=== PATIENT | female | born 1980 | race Caucasian/White ===

== ENCOUNTER 2017-01-31 08:55 | Inpatient (IN) | payer OTHER ==
[2017-01-31] VITALS (40 sets, daily range): BP systolic 58–134; BP diastolic 38–83; PULSE 84–120; RESP 12–33; TEMP 97.8–98.9; O2SAT 96–100
[~2017-01-31] VITALS: Ht 167.6 cm; Wt 91.0 kg
[~2017-01-31 08:55] MED LIST: ALPR.25 PO; LEVO150T7 PO; LORA-475 PO; PRENCAP10 PO
[2017-01-31] MEDS ORDERED: SODIUM CHLOR 0.9% 1000 ML INJ 1,000 ML IV SCH (09:21)
[2017-01-31] MEDS ORDERED: ONDANSETRON HCL 4 MG/2 ML VIAL IVP ONE (09:30)
[2017-01-31] MEDS ORDERED: PANTOPRAZOLE INJ 80 MG in SODIUM CHLORIDE 0.9% INJ 35 ML IV ONE (09:30)
--- NOTE | 2017-01-31 09:34 | PD ---
HPI Chief Complaint: GI Complaint Time Seen by Provider: 09:13 Travel History International Travel<30 days: No Contact w/Intl Traveler<30days: No Traveled to known affect area: No History of Present Illness HPI The patient is a 36-year-old female who presents to the emergency department for hematemesis. The patient has a history of prior alcohol abuse, underwent alcohol withdrawal seizures earlier this year and then went to rehabilitation. The patient states she was clean for several months, however, when on vacation and subsequently started using alcohol once again. The patient has been drinking a pint of vodka per day for the last 3 weeks. The patient states she developed dark stools 2 days ago and then earlier this morning at 4:30 AM developed nausea with subsequent vomiting. The patient states she's had multiple episodes of vomiting right red to dark red blood with a few clots. The patient denies any known history of gastritis, peptic ulcer disease, or esophageal varices. She denies taking any blood thinners. She does complain of mild nausea but denies any acute abdominal pain. She denies any known history of coagulopathy. The patient is never undergone endoscopy in the past, her current primary physician is Dr. Cayden Rowell. [facility] Past Medical History Anxiety: Yes (xanax prn) Depression: Yes (POST DEPRESSION) Cancer: No Cardiovascular Problems: No Diabetes: No Diminished Hearing: No Endocrine: Yes Gastrointestinal Disorders: Yes (GERD) GERD: Yes Genitourinary: No Hepatitis: No Hiatal Hernia: No Hypertension: Yes Immune Disorder: No Musculoskeletal: No Neurologic: No Psychiatric: Yes (ANXIETY, CLAUSTRAPHOBIA) Reproductive: No Respiratory: No Immunizations Current: Yes Thyroid Disease: Yes Tetanus Vaccination: > 5 Years Influenza Vaccination: No ?: Not LMP: 12/15/16 : 2 Para: 2 Past Surgical History AICD: No Cholecystectomy: Yes Joint Replacement: No Pacemaker: No Other Surgery: No (VARICOSE VEINS REMOVAL SURGERY) Social History Alcohol Use: Yes (1L/day) Tobacco Use: No Substance Use: No Allergies-Medications (Allergen,Severity, Reaction): Coded Allergies: No Known Allergies (Unverified , 01/31/17) Reported Meds & Prescriptions Reported Meds & Active Scripts Active Ativan (Lorazepam) 2 Mg Tab 2 Mg PO Q8HR PRN Reported Levothyroxine 150 mcg (Levothyroxine Sodium) 150 Mcg Tab 150 Mcg PO DAILY Multi +Dha (Ferrous Fumarate/Vit C/Folic Acid) + Cap 1 Cap PO DAILY Xanax 0.25 Mg (Alprazolam) 0.25 Mg Tab 0.25 Mg PO TID PRN Review of Systems Except as stated in HPI: all other systems reviewed are Neg General / Constitutional: No: Fever HENT: No: Lightheadedness Cardiovascular: No: Chest Pain or Discomfort Respiratory: No: Shortness of Breath Gastrointestinal: Positive: Nausea, Vomiting, Hematemesis, Changes in Bowel Habits (dark colored stools over the last several days), No: Abdominal Pain Musculoskeletal: Positive: Weakness Neurologic: No: Dizziness Psychiatric: Positive: Anxiety, Depression, Substance Abuse (alcohol abuse) Physical Exam Narrative GENERAL: Awake, alert, pleasant 36 year-old female who appears her stated age and is in no acute respiratory distress. SKIN: Focused skin assessment warm/dry. HEAD: Atraumatic. Normocephalic. EYES: Pupils equal and round. No scleral icterus. No injection or drainage. ENT: No nasal bleeding or discharge. Mucous membranes pink and moist. NECK: Trachea midline. No JVD. CARDIOVASCULAR: Regular, tachycardic with a heart rate of 105. RESPIRATORY: No accessory muscle use. Clear to auscultation. Breath sounds equal bilaterally. GASTROINTESTINAL: Abdomen soft, non-tender, nondistended. No epigastric tenderness. MUSCULOSKELETAL: No obvious deformities. No clubbing. No cyanosis. No edema. Mildly tremulous. NEUROLOGICAL: Awake and alert. No obvious cranial nerve deficits. Motor grossly within normal limits. Normal speech. PSYCHIATRIC: Appropriate mood and affect; insight and judgment normal. Data Data Last Documented VS Vital Signs Date Time Temp Pulse Resp B/P Pulse Ox O2 Delivery O2 Flow Rate FiO2 01/31/17 10:31 85 16 103/73 100 Room Air 01/31/17 09:01 98.0 Orders Complete Blood Count With Diff (01/31/17 09:21) Comprehensive Metabolic Panel (01/31/17 09:21) Lipase (01/31/17 09:21) Prothrombin Time / Inr (Pt) (01/31/17 09:21) Act Partial Throm Time (Ptt) (01/31/17 09:21) Alcohol (Ethanol) (01/31/17 09:21) Urinalysis - C+S If Indicated (01/31/17 09:21) Type And Screen (01/31/17 09:21) Ecg Monitoring (01/31/17 09:21) Iv Access Insert/Monitor (01/31/17 09:21) Orthostatic Vital Signs (01/31/17 09:21) Oximetry (01/31/17 09:21) Ondansetron Inj (Zofran Inj) (01/31/17 09:30) Sodium Chlor 0.9% 1000 Ml Inj (Ns 1000 M (01/31/17 09:21) Sodium Chloride 0.9% Flush (Ns Flush) (01/31/17 09:30) Octreotide Inj (Sandostatin Inj) (01/31/17 09:30) Pantoprazole Inj (Protonix Inj) (01/31/17 09:30) Pantoprazole Inj (Protonix Inj) (01/31/17 09:30) Electrocardiogram (01/31/17 ) Sodium Chlor 0.9% 1000 Ml Inj (Ns 1000 M (01/31/17 10:00) NPO (01/31/17 10:54) Fresh Frozen Plasma (Ffp) (01/31/17 10:54) Blood Product Administration .UPON TRANSFUSION (01/31/17 10:54) Sodium Chlor 0.9% 250 Ml Inj (Ns 250 Ml (01/31/17 11:00) Diphenhydramine Inj (Benadryl Inj) (01/31/17 11:00) Acetaminophen (Tylenol) (01/31/17 11:00) Consent (01/31/17 10:55) Consult Gastroenterology (01/31/17 ) Admit Order (Ed Use Only) (01/31/17 11:31) Labs Laboratory Tests Test 01/31/17 09:30 White Blood Count 8.0 TH/MM3 Red Blood Count 3.60 MIL/MM3 Hemoglobin 11.8 GM/DL Hematocrit 33.7 % Mean Corpuscular Volume 93.6 FL Mean Corpuscular Hemoglobin 32.7 PG Mean Corpuscular Hemoglobin 34.9 % Concent Red Cell Distribution Width 16.6 % Platelet Count 82 TH/MM3 Mean Platelet Volume 9.8 FL Neutrophils (%) (Auto) 82.5 % Lymphocytes (%) (Auto) 9.5 % Monocytes (%) (Auto) 7.0 % Eosinophils (%) (Auto) 0.3 % Basophils (%) (Auto) 0.7 % Neutrophils # (Auto) 6.5 TH/MM3 Lymphocytes # (Auto) 0.8 TH/MM3 Monocytes # (Auto) 0.6 TH/MM3 Eosinophils # (Auto) 0.0 TH/MM3 Basophils # (Auto) 0.1 TH/MM3 CBC Comment AUTO DIFF Differential Comment AUTO DIFF CONFIRMED Platelet Estimate LOW Platelet Morphology Comment NORMAL Prothrombin Time 21.9 SEC Prothromb Time International 1.9 RATIO Ratio Activated Partial 27.8 SEC Thromboplast Time Sodium Level 141 MEQ/L Potassium Level 3.5 MEQ/L Chloride Level 101 MEQ/L Carbon Dioxide Level 25.1 MEQ/L Anion Gap 15 MEQ/L Blood Urea Nitrogen 13 MG/DL Creatinine 0.55 MG/DL Estimat Glomerular Filtration 124 ML/MIN Rate Random Glucose 118 MG/DL Calcium Level 9.1 MG/DL Total Bilirubin 5.7 MG/DL Aspartate Amino Transf 307 U/L (AST/SGOT) Alanine Aminotransferase 104 U/L (ALT/SGPT) Alkaline Phosphatase 151 U/L Total Protein 7.8 GM/DL Albumin 3.1 GM/DL Lipase 234 U/L Ethyl Alcohol Level 115 MG/DL MDM Medical Decision Making Medical Screen Exam Complete: Yes Emergency Medical Condition: Yes Medical Record Reviewed: Yes Interpretation(s) EKG reveals normal sinus rhythm with a rate 87. Inverted T-wave in lead 3. Laboratory Tests Test 01/31/17 09:30 White Blood Count 8.0 TH/MM3 Red Blood Count 3.60 MIL/MM3 Hemoglobin 11.8 GM/DL Hematocrit 33.7 % Mean Corpuscular Volume 93.6 FL Mean Corpuscular Hemoglobin 32.7 PG Mean Corpuscular Hemoglobin 34.9 % Concent Red Cell Distribution Width 16.6 % Platelet Count 82 TH/MM3 Mean Platelet Volume 9.8 FL Neutrophils (%) (Auto) 82.5 % Lymphocytes (%) (Auto) 9.5 % Monocytes (%) (Auto) 7.0 % Eosinophils (%) (Auto) 0.3 % Basophils (%) (Auto) 0.7 % Neutrophils # (Auto) 6.5 TH/MM3 Lymphocytes # (Auto) 0.8 TH/MM3 Monocytes # (Auto) 0.6 TH/MM3 Eosinophils # (Auto) 0.0 TH/MM3 Basophils # (Auto) 0.1 TH/MM3 CBC Comment AUTO DIFF Differential Comment AUTO DIFF CONFIRMED Platelet Estimate LOW Platelet Morphology Comment NORMAL Prothrombin Time 21.9 SEC Prothromb Time International 1.9 RATIO Ratio Activated Partial 27.8 SEC Thromboplast Time Sodium Level 141 MEQ/L Potassium Level 3.5 MEQ/L Chloride Level 101 MEQ/L Carbon Dioxide Level 25.1 MEQ/L Anion Gap 15 MEQ/L Blood Urea Nitrogen 13 MG/DL Creatinine 0.55 MG/DL Estimat Glomerular Filtration 124 ML/MIN Rate Random Glucose 118 MG/DL Calcium Level 9.1 MG/DL Total Bilirubin 5.7 MG/DL Aspartate Amino Transf 307 U/L (AST/SGOT) Alanine Aminotransferase 104 U/L (ALT/SGPT) Alkaline Phosphatase 151 U/L Total Protein 7.8 GM/DL Albumin 3.1 GM/DL Lipase 234 U/L Ethyl Alcohol Level 115 MG/DL Differential Diagnosis Differential diagnosis includes esophageal varices, gastritis, peptic ulcer disease, upper GI bleed, alcohol withdrawal, dehydration, coagulopathy. Narrative Course IV was established, labs are drawn and sent, and the patient was placed on cardiac telemetry monitoring and continuous pulse oximetry monitoring. EKG was ordered and interpreted. The patient had approximate 600-700 cc of bright to dark colored blood with a few visible clots but then an emesis bag. Therefore, the patient was administered Protonix bolus and then a Protonix drip and octreotide. IV fluids were started. The on-call forest pathologist was paged. Orthostatic vital signs were obtained, blood pressure fell to 58/38 sitting upright, patient was symptomatic. Therefore, the patient was administered a 1 L normal saline bolus. The patient's INR is elevated at 1.9, platelets are low at 82, albumin 3.1, AST is greater than ALT at almost a 3-1 ratio, most likely indicative of liver disease from alcohol intoxication. Alcohol level is elevated at 115. The patient will need admission, repeat CBC, and GI consultation for endoscopy. I discussed the patient with Dr. Carranza who agrees with admission, however, we will await gastroenterology input in regards to whether the patient can stay at [place] or needs to be transferred to [facility]. I discussed the patient with Dr. Murillo at 10:54 AM who agrees with nothing by mouth, 2 units of FFP secondary to INR 1.9 with no anticoagulants, and she will call the GI lab to see if the patient can undergo endoscopy with possible banded at [place] or will have to be transferred to [facility]. I discussed the patient Dr. Murillo, she states the patient will undergo endoscopy at [facility], the patient will be admitted to the stepdown unit in the ICU. Critical Care Narrative Aggregate critical care time was 40 minutes. Time to perform other separately billable procedures was not included in the critical care time. My time did not include minutes spent treating any other patients simultaneously or on activities that did not directly contribute to the patient's treatment. The services I provided to this patient were to treat and/or prevent clinically significant deterioration that could result in: Hemorrhagic shock, dehydration, symptomatic anemia, alcohol withdrawal, arrhythmia, electrolyte abnormality, . I provided critical care services requiring my management, as noted below: Chart data review, documentation time, medication orders and management, vital sign assessments/reviewing monitor data, ordering and reviewing lab tests, ordering and interpreting/reviewing x-rays and diagnostic studies, care of the patient and discussion of the patient with the admitting physicians. Physician Communication Physician Communication I discussed the patient with Dr. Carranza who agrees with admission. Diagnosis Primary Impression: Upper GI bleed Additional Impression: Hematemesis Qualified Code: K92.0 - Hematemesis with nausea Admitting Information Admitting Physician Requests: Admit Condition: Stable Kushal Hernandez MD Jan 31, 2017 09:34
[2017-01-31 09:40] LABS: AUTOMATED NEUTROPHIL # 6.5 TH/MM3 (1.8-7.7); BASOPHIL # 0.1 TH/MM3 (0-0.2); BASOPHIL % 0.7 % (0.0-2.0); EOSINOPHIL % 0.3 % (0.0-4.0); HEMATOCRIT 33.7 % (35.0-46.0); LYMPH % 9.5 % (9.0-44.0); LYMPHOCYTE # 0.8 TH/MM3 (1.0-4.8); MEAN CELL VOLUME 93.6 FL (80.0-100.0); MEAN CORPUSCULAR HEMOGLOBIN 32.7 PG (27.0-34.0); MEAN CORPUSCULAR HGB CONC 34.9 % (32.0-36.0); NEUT % 82.5 % (16.0-70.0); PLATELET COUNT 82 TH/MM3 (150-450); RED CELL DISTRIBUTION WIDTH 16.6 % (11.6-17.2)
[2017-01-31 09:41] LABS: HEMO FLAGS AUTO DIFF
[2017-01-31 09:52] LABS: APTT (PATIENT) 27.8 SEC (24.3-30.1); INTERNATIONAL NORMALIZED RATIO 1.9 RATIO; PROTHROMBIN TIME - PATIENT 21.9 SEC (9.8-11.6)
[2017-01-31 09:56] LABS: CHLORIDE 101 MEQ/L (98-107); POTASSIUM 3.5 MEQ/L (3.5-5.1); SODIUM (NA) 141 MEQ/L (136-145)
[2017-01-31] MEDS ORDERED: SODIUM CHLOR 0.9% 1000 ML INJ 1,000 ML IV ONE (10:00)
[2017-01-31 10:03] LABS: BLOOD UREA NITROGEN 13 MG/DL (7-18)
[2017-01-31] MEDS: SODIUM CHLORIDE 0.9% FLUSH 10 ML FLUSH IVF PRN ×3 (10:04→10:24)
[2017-01-31 10:05] LABS: ALT (GPT) 104 U/L (10-53); ANION GAP 15 MEQ/L (5-15); AST (GOT) 307 U/L (15-37); BICARBONATE 25.1 MEQ/L (21.0-32.0); GLOMERULAR FILTRATION RATE 124 ML/MIN (>89)
[2017-01-31 10:07] LABS: TOTAL BILIRUBIN ADULT 5.7 MG/DL (0.2-1.0)
[2017-01-31 10:08] LABS: ALKALINE PHOSPHATASE 151 U/L (45-117); PLATELET ESTIMATE SMEAR LOW (NORMAL); PLATELET MORPHOLOGY NORMAL (NORMAL); SCAN/DIFF AUTO DIFF CONFIRMED
[2017-01-31] MEDS: OCTREOTIDE INJ 500 MCG in SODIUM CHLORID 0.9% 500 ML INJ 500 ML IV SCH ×3 (10:13→23:15)
[2017-01-31] MEDS: PANTOPRAZOLE INJ 80 MG in SODIUM CHLORIDE 0.9% INJ 100 ML IV SCH ×3 (10:24→23:14)
[2017-01-31] MEDS ORDERED: ACETAMINOPHEN 325 MG TAB PO PRN ×2 (11:00→11:45)
[2017-01-31] MEDS ORDERED: diphenhydrAMINE HCL 50 MG/ML VIAL IV PRN (11:00)
[2017-01-31] MEDS ORDERED: SODIUM CHLOR 0.9% 250 ML INJ 250 ML IV ONE (11:00)
[2017-01-31] MEDS ORDERED: LORazepam 2 MG TAB PO PRN (11:45)
[2017-01-31] MEDS ORDERED: ONDANSETRON HCL 4 MG/2 ML VIAL IVP PRN (11:45)
[2017-01-31] MEDS ORDERED: FLUMAZENIL 0.5 MG/5 ML VIAL IV PUSH PRN (11:45)
[2017-01-31] MEDS ORDERED: LORazepam 2 MG/ML VIAL IV PUSH PRN (11:45)
[2017-01-31] MEDS ORDERED: TEMAZEPAM 15 MG CAP PO PRN (11:45)
[2017-01-31] MEDS ORDERED: SODIUM CHLORIDE 0.9% FLUSH 10 ML FLUSH IV FLUSH PRN ×2 (11:45→13:45)
[2017-01-31] MEDS ORDERED: NALOXONE HCL 0.4 MG/ML AMP IV PRN (11:45)
[2017-01-31] MEDS ORDERED: LORazepam 1 MG TAB PO PRN (11:45)
--- NOTE | 2017-01-31 11:53 | HHI.HP ---
HPI Service [facility] Primary Care Physician Cayden Rowell MD Admission Diagnosis upper GI bleed rule out esophageal varices, orthostatic hypotension Diagnoses: (1) Upper GI bleed (2) Hematemesis (3) Coagulopathy (4) Hypotension due to blood loss (5) Transaminitis (6) Hypothyroidism (7) Alcohol abuse Chief Complaint: Vomiting of blood Travel History International Travel<30 Days: No Contact w/Intl Traveler <30 Da: No Traveled to Known Affected Are: No History of Present Illness 36 year-old female with a history of hypothyroidism, alcohol abuse resented to the ED for evaluation of an acute onset of vomiting bright red blood 6 times total since 4:30 AM this morning along with 2 day history of back black stool associated with abdominal pain rated 7/10 in intensity. Patient was recently sober until 3 weeks ago when she started drinking, mostly 1 pint of vodka per day. She denies any prior history of endoscopy and is not currently on any blood thinner. Abnormal labs include EtOH 115, PT 21.9 and H& H 11.8/33.7. She endorsed mild shortness of breath or denies any chest pain at this point. She has no other issues. Review of Systems Except as stated in HPI: all other systems reviewed are Neg Past Family Social History Past Medical History Hypothyroidism Alcohol abuse Anxiety Past Surgical History Cholecystectomy Appendectomy VARICOSE VEINS REMOVAL SURGERY Reported Medications Levothyroxine 150 mcg (Levothyroxine Sodium) 150 Mcg Tab 150 Mcg PO DAILY Multi +Dha (Ferrous Fumarate/Vit C/Folic Acid) + Cap 1 Cap PO DAILY Xanax 0.25 Mg (Alprazolam) 0.25 Mg Tab 0.25 Mg PO TID PRN Allergies: Coded Allergies: No Known Allergies (Unverified , 01/31/17) Family History Maternal grandmother from complication of colon cancer Maternal uncle alcoholism Mother with a history of diabetes type 2 Social History Alcohol Use: Yes (1L/day) Tobacco Use: No Substance Use: No Physical Exam Vital Signs Vital Signs Date Time Temp Pulse Resp B/P Pulse Ox O2 Delivery O2 Flow Rate FiO2 01/31/17 10:31 85 16 103/73 100 Room Air 01/31/17 10:25 16 01/31/17 10:15 87 16 111/67 100 Room Air 01/31/17 10:00 100 18 109/75 113 18 58/38 Automatic Cuff 01/31/17 09:29 93 16 109/75 98 Room Air 01/31/17 09:11 16 01/31/17 09:01 98.0 105 16 98 Physical Exam GENERAL: This is a well-nourished, well-developed patient, in no apparent distress. SKIN: No rashes, ecchymoses or lesions. Cool and dry. HEAD: Atraumatic. Normocephalic. No temporal or scalp tenderness. EYES: Pupils equal round and reactive. Extraocular motions intact. No scleral icterus. No injection or drainage. ENT: Nose without bleeding, purulent drainage or septal hematoma. Throat without erythema, tonsillar hypertrophy or exudate. Uvula midline. Airway patent. NECK: Trachea midline. No JVD or lymphadenopathy. Supple, nontender, no meningeal signs. CARDIOVASCULAR: Regular rate and rhythm without murmurs, gallops, or rubs. RESPIRATORY: Clear to auscultation. Breath sounds equal bilaterally. No wheezes , rales, or rhonchi. GASTROINTESTINAL: Abdomen soft, non-tender, nondistended. No hepato-splenomegaly , or palpable masses. No guarding. MUSCULOSKELETAL: Extremities without clubbing, cyanosis, or edema. No joint tenderness, effusion, or edema noted. No calf tenderness. Negative Homans sign bilaterally. NEUROLOGICAL: Awake and alert. Cranial nerves II through XII intact. Motor and sensory grossly within normal limits. Five out of 5 muscle strength in all muscle groups. Normal speech. Laboratory Laboratory Tests Test 01/31/17 09:30 White Blood Count 8.0 Red Blood Count 3.60 Hemoglobin 11.8 Hematocrit 33.7 Mean Corpuscular Volume 93.6 Mean Corpuscular Hemoglobin 32.7 Mean Corpuscular Hemoglobin 34.9 Concent Red Cell Distribution Width 16.6 Platelet Count 82 Mean Platelet Volume 9.8 Neutrophils (%) (Auto) 82.5 Lymphocytes (%) (Auto) 9.5 Monocytes (%) (Auto) 7.0 Eosinophils (%) (Auto) 0.3 Basophils (%) (Auto) 0.7 Neutrophils # (Auto) 6.5 Lymphocytes # (Auto) 0.8 Monocytes # (Auto) 0.6 Eosinophils # (Auto) 0.0 Basophils # (Auto) 0.1 CBC Comment AUTO DIFF Differential Comment AUTO DIFF CONFIRMED Platelet Estimate LOW Platelet Morphology Comment NORMAL Prothrombin Time 21.9 Prothromb Time International 1.9 Ratio Activated Partial 27.8 Thromboplast Time Sodium Level 141 Potassium Level 3.5 Chloride Level 101 Carbon Dioxide Level 25.1 Anion Gap 15 Blood Urea Nitrogen 13 Creatinine 0.55 Estimat Glomerular Filtration 124 Rate Random Glucose 118 Calcium Level 9.1 Total Bilirubin 5.7 Aspartate Amino Transf 307 (AST/SGOT) Alanine Aminotransferase 104 (ALT/SGPT) Alkaline Phosphatase 151 Total Protein 7.8 Albumin 3.1 Lipase 234 Ethyl Alcohol Level 115 Blood Type A POSITIVE Antibody Screen NEGATIVE Result Diagram: 01/31/1792901/31/17929 Assessment and Plan Problem List: (1) Upper GI bleed ICD Code: K92.2 Status: Acute (2) Hematemesis ICD Code: K92.0 Status: Acute (3) Coagulopathy ICD Code: D68.9 Status: Acute (4) Hypothyroidism ICD Code: E03.9 Status: Acute (5) Transaminitis ICD Code: R74.0 Status: Acute (6) Hypotension due to blood loss ICD Code: I95.89 Status: Acute Assessment and Plan 36-year-old female with Upper GI bleed Start PPI and octreotide drips Serial H&H check Consult gastroenterology for evaluation for panendoscopy Keep nothing by mouth Coagulopathy Secondary to liver disease Treat with FFP Alcohol abuse Alcohol cessation counseling provided Start rally pack, CIWA protocol, Librium protocol and seizure precautions Hypotension due to blood loss Secondary to GI bleeding Treatment with Volume resuscitations NS Transaminitis Secondary to liver disease due to alcohol however will check hepatitis profile and treat accordingly Monitor LFTs Thrombocytopenia Secondary to liver disease due to alcohol abuse. Monitor platelet counts Hypothyroidism Resume Synthroid in a.m. DVT prophylaxis: Chemical anti-prophylaxis is contraindicated, bilateral SCDs GI prophylaxis: PPI Code Status Full code Discussed Condition With Patient, ED physician Physician Certification 2 Midnight Certification Type: Admission for Inpatient Services Order for Inpatient Services The services are ordered in accordance with Medicare regulations or non- Medicare payer requirements, as applicable. In the case of services not specified as inpatient-only, they are appropriately provided as inpatient services in accordance with the 2-midnight benchmark. Estimated LOS (days): 2 days is the estimated time the patient will need to remain in the hospital, assuming treatment plan goals are met and no additional complications. Post-Hospital Plan: Not yet determined Problem Qualifiers (1) Hematemesis: Qualified Code: K92.0 - Hematemesis with nausea Arnoldo Carranza MD Jan 31, 2017 11:53
--- NOTE | 2017-01-31 11:56 | EKG ---
Date Performed: 01/31/2017 Time Performed: 09:44:43 PTAGE: 36 years EKG: Sinus rhythm MINIMAL ST DEPRESSION BORDERLINE ECG PREVIOUS TRACING : 02/14/2015 20.39 No significant change from previous tracing noted. DOCTOR: Ady Becker Interpretating Date/Time 01/31/2017 11:54:46
--- NOTE | 2017-01-31 13:02 | MB ---
cc: AVA VO M.D. DATE OF CONSULTATION 01/31/2017 DATE OF [address] Carranza REASON FOR CONSULTATION GI bleed HISTORY Ms. Sharp is a 36-year-old lady with a history of heavy alcohol use admitted to the hospital with hematemesis. The patient has a history of alcohol abuse for many years, was abstinent for the last 3 month, but recently started consuming etoh again She started vomiting bright red blood six times total since 04:30 this morning. She also has a new history of a few days of black tarry stool. She also has some abdominal pain mostly in the lower abdomen. She fells better at this time. Never had an endoscopy and a colonoscopy. She stated she was sober until a few weeks ago when she started drinking again a pint of vodka per day. She was never told she had liver issues until today. PAST MEDICAL HISTORY 1. Hypothyroidism 2. Alcohol abuse 3. Anxiety PAST SURGICAL HISTORY 1. Cholecystectomy 2. Appendectomy 3. Varicose vein removal surgery 4. Hypothyroidism MEDICATIONS 1. 2. Multivitamins 3. Xanax ALLERGIES No known allergies. FAMILY HISTORY Grandmother from colon cancer and diabetes. SOCIAL HISTORY Drinks a liter of vodka per day. ALLERGIES No known allergies. SOCIAL HISTORY Denies smoking, drinking or drug use. PHYSICAL EXAM On clinical exam, she is sitting comfortably in bed in no acute distress. VITAL SIGNS: Temperature 98.3, pulse 97, blood pressure 102/68, saturation 98. HEAD, EYES, EARS, NOSE, AND THROAT: PERRLA. Mild jaundice. NECK: No JVD. No lymphadenopathy. CHEST: Clear to the auscultation and palpation. CARDIOVASCULAR: Sinus rhythm with no murmur. ABDOMEN: Soft and nontender. Bowel sounds are present. MARKETING COMPLIANCE MANAGER: Awake, alert, oriented x3. No focal signs identified, INR 1.9, PT 21.9. Hematology hemoglobin 11.8, platelets 82. Chemistry total bilirubin 5.7, AST 307, ALT 104, alkaline phosphatase 151, albumin 3.1. IMPRESSION Ms. Sharp is a 36-year-old lady admitted with upper GI bleed. Differential include peptic ulcer disease, esophageal varices, portal gastropathy. She is hemodynamically stable at this time. Elevated LFTs most likely secondary to alcohol liver disease. RECOMMENDATIONS Upper endoscopy with possible banding will be scheduled. IV antibiotics upper quadrant ultrasound. Hepatitis profile. Monitor H&H closely. Transfuse to keep hemoglobin more than 8. Avoid NSAIDs and alcohol. I like to thank Dr. Carranza for referring her to our office for consultation. Findings were discussed with the patient. The risks and benefits were discussed with the patient. MD YVON KirbyB/CHARLY /12:45 PM /12:55 PM MTDPauly
[2017-01-31] MEDS ORDERED: fentaNYL DRIP 250 ML IV SCH (13:45)
[2017-01-31] MEDS ORDERED: BISACODYL 10 MG SUPP RECTAL PRN (13:45)
[2017-01-31] MEDS ORDERED: MISCELLANEOUS NURSING INFORMATION XX SCH (13:45)
[2017-01-31] MEDS ORDERED: LACTULOSE SYRUP 20 GM/30 ML CUP PO PRN (13:45)
[2017-01-31] MEDS ORDERED: ONDANSETRON HCL 4 MG/2 ML VIAL IV PRN (13:45)
[2017-01-31] MEDS ORDERED: SENNOSIDES 8.6 MG TAB PO PRN (13:45)
[2017-01-31] MEDS ORDERED: MAGNESIUM HYDROXIDE SUSP 30 ML CUP PO PRN (13:45)
[2017-01-31] MEDS ORDERED: RESP: ALBUTEROL 2.5 MG/3 ML NEB (PRN) INH (13:45)
[2017-01-31] MEDS ORDERED: CHLORHEXIDINE GLUCONATE 2 % 1 PACK (2 CLOTHS) TOP PRN (13:45)
--- NOTE | 2017-01-31 14:06 | PD.CONS ---
[facility] Service Critical Care Medicine Consult Requested By Dr. Murillo Reason for Consult Ventilator management status post EGD with esophageal banding 3 Primary Care Physician Cayden Rowell MD History of Present Illness This is a 36-year-old female. Date of admission 01/31/2017. Date of consultation 01/31/2017. Past medical history includes hypothyroidism, anxiety, gastroesophageal reflux disease, hypertension, anemia. She also has a history of EtOH use/abuse. According to records obtained as she is currently intubated and unable to provide on her own she has been drinking approximately 1 L of vodka daily for the past 3 days. She presented to [facility] with acute onset of hematemesis and subacute black tarry stools 2 days. INR was elevated at 1.9. PTT within normal lives. Hemoglobin around 12. Alcohol level 115. Beta Hcg pending She was started on a Protonix drip 8 mg/hr after receiving a 80 mg bolus and octreotide drip 2 50 mcg/hr Patient was originally admitted under the hospitalist service. GI was consulted and an EGD was performed which revealed esophageal varices which were banded 3 and portal gastropathy. 700 cc crystalloid. 5 45 cc FFP. Estimate blood loss 200 cc. We are asked to keep the patient intubated by the GI service overnight with serial hemoglobins to be performed. Review of Systems ROS Limitations: Intubated Past Family Social History Allergies: Coded Allergies: No Known Allergies (Unverified , 01/31/17) Past Medical History Anxiety EtOH Hypothyroidism Gastroesophageal reflux disease History of hypertension Anemia Past Surgical History Cholecystectomy Appendectomy Varicose vein Reported Medications Levoxyl 150 by mouth daily Xanax 0.25 mg by mouth as needed Protonix 40 mg by mouth daily Active Ordered Medications Reviewed in EMR Family History Maternal grandmother of colon cancer. Maternal uncle alcohol abuse. Mother diabetes. Social History Positive alcohol use/abuse. Currently vodka 1 L daily. No tobacco or IV drug use documented. Physical Exam Vital Signs Vital Signs Date Time Temp Pulse Resp B/P Pulse Ox O2 Delivery O2 Flow Rate FiO2 01/31/17 11:51 95 16 102/68 98 01/31/17 11:50 98.4 01/31/17 11:50 Nasal Cannula 3 01/31/17 11:00 97 16 123/83 98 Room Air 01/31/17 10:31 85 16 103/73 100 Room Air 01/31/17 10:25 16 01/31/17 10:15 87 16 111/67 100 Room Air 01/31/17 10:00 100 18 109/75 113 18 58/38 Automatic Cuff 01/31/17 09:29 93 16 109/75 98 Room Air 01/31/17 09:11 16 01/31/17 09:01 98.0 105 16 98 Physical Exam GENERAL: 36-year-old female, critically ill currently orotracheally intubated SKIN: Warm and dry. No rash. Well-perfused HEAD: Atraumatic. Normocephalic. EYES: Pupils equal and round about 5 mm bilaterally and reactive to 4 mm.. Scant scleral icterus. No injection or drainage. ENT: No nasal bleeding or discharge. Mucous membranes pink and moist. NECK: Trachea midline. No JVD. CARDIOVASCULAR: Tachycardic, RR. S1, S2. No S4. Without murmur RESPIRATORY: Clear to auscultation. Breath sounds equal bilaterally. GASTROINTESTINAL: Abdomen firm, distended. Positive succussion splash. Hepatomegaly identified 3-4 cm below the costal margin MUSCULOSKELETAL: Extremities with trace lower extremity edema. No obvious deformities. NEUROLOGICAL: Awake and alert. On the ventilator and following commands. Moves all 4 extremity spontaneously. Normal sensation. Laboratory Laboratory Tests Test 01/31/17 01/31/17 09:30 10:54 White Blood Count 8.0 Red Blood Count 3.60 Hemoglobin 11.8 Hematocrit 33.7 Mean Corpuscular Volume 93.6 Mean Corpuscular Hemoglobin 32.7 Mean Corpuscular Hemoglobin 34.9 Concent Red Cell Distribution Width 16.6 Platelet Count 82 Mean Platelet Volume 9.8 Neutrophils (%) (Auto) 82.5 Lymphocytes (%) (Auto) 9.5 Monocytes (%) (Auto) 7.0 Eosinophils (%) (Auto) 0.3 Basophils (%) (Auto) 0.7 Neutrophils # (Auto) 6.5 Lymphocytes # (Auto) 0.8 Monocytes # (Auto) 0.6 Eosinophils # (Auto) 0.0 Basophils # (Auto) 0.1 CBC Comment AUTO DIFF Differential Comment AUTO DIFF CONFIRMED Platelet Estimate LOW Platelet Morphology Comment NORMAL Prothrombin Time 21.9 Prothromb Time International 1.9 Ratio Activated Partial 27.8 Thromboplast Time Sodium Level 141 Potassium Level 3.5 Chloride Level 101 Carbon Dioxide Level 25.1 Anion Gap 15 Blood Urea Nitrogen 13 Creatinine 0.55 Estimat Glomerular Filtration 124 Rate Random Glucose 118 Calcium Level 9.1 Total Bilirubin 5.7 Aspartate Amino Transf 307 (AST/SGOT) Alanine Aminotransferase 104 (ALT/SGPT) Alkaline Phosphatase 151 Total Protein 7.8 Albumin 3.1 Lipase 234 Ethyl Alcohol Level 115 Blood Type A POSITIVE Antibody Screen NEGATIVE Blood Bank Comment Result Diagram: 01/31/1792901/31/17929 Assessment and Plan Assessment and Plan Neuro/Psych: EtOH Anxiety Chronic benzodiazepine use Currently on propofol/fentanyl drips/Precedex drip initiated for sedation/ analgesia while intubated Goal of RA SS -2 Daily sedation vacation Questionable home dose Xanax 0.25 mg every 8 hours when necessary Vitamin bag daily 3 days including thiamine, folate and multivitamin. Monitor for DTs EtOH level 115 on arrival CV: History of hypertension LA Currently on normal saline at 84 cc an hour Not requiring vasopressors and/or antihypertensives EKG revealed no acute cardiopulmonary findings on admission Serial lactater until cleared Resp: Acute respiratory failure [facility] 14/500/ Ventilator bundle As needed albuterol therapy for dyspnea Spontaneous breathing trials in a.m. Follow-up chest x-ray/ABG post intubation Requested by GI to keep intubated overnight due to high risk of rebleeding GI: Upper GI bleed Status post EGD with esophageal varices 3/portal gastropathy Elevated bilirubin Elevated AST/ALT ratio indicative of alcohol liver disease Gastroesophageal reflux disease Possible abdominal ascites Status post EGD 01/[address] Murillo revealed esophageal varices with banding 3/ portal gastropathy Continue on Protonix drip at 8 mg an hour and octreotide drip at 50 mg an hour. Serial hemoglobins every 6 hours. Transfuse as indicated Abdominal ultrasound ordered. Possibly needs paracentesis Hepatitis panel ordered Palpable sensation will be encouraged : Flores catheter will be placed for accurate I's and O's in a critically ill patient Endo: Hypothyroidism Hyperglycemia of critical illness/stress Continue Levoxyl 75 mg IV daily. Check TSH Sliding scale insulin if indicated to maintain euglycemia Renal: Monitor urine output Accurate I's and O's Follow BMP in a.m. Heme: Coagulopathy - secondary to liver disease Thrombocytopenia Acute posthem anemia Status post 2 FFP. Tx 2 UPRBC now Serial hemoglobins every 6 hours. Transfuse as clinically indicated Recheck coag/fibrinogen in a.m. ID: Currently on Rocephin 1 g IV every 24 hours in setting of upper GI bleed FEN: Replace electrolytes as clinically indicated MSK: PT evaluate and treat Access - Utilize peripheral IV. Central line if indicated Prophylaxis - GI - Protonix/octreotide drips - DVT - SCD/pharmacological prophylaxis contraindicated with active hemorrhage Critical Care: The total critical care time was 55 minutes. Time to perform other separately billable procedures was not included in the critical care time. Code Status Full code Discussed Condition With Dr. Murillo/GI. Patient. Care plan discussed and all questions answered. Scott Ching MD Jan 31, 2017 14:06
--- NOTE | 2017-01-31 14:26 | RADRPT ---
EXAM DATE/TIME: 01/31/2017 14:16 [facility] COMPARISON: CHEST SINGLE AP, March 29, 2014, 11:07. INDICATIONS : Post intubation MEDICAL HISTORY : None. SURGICAL HISTORY : None. ENCOUNTER: Initial ACUITY: 1 day PAIN SCORE: Non-responsive. LOCATION: Bilateral chest FINDINGS: Endotracheal tube is at the level of the clavicles approximately 3.5 cm above the carmen. Cardiac kate houette is enlarged and pulmonary vascularity slightly indistinct. There is diffuse interstitial prom inence exaggerated by lung volumes. Remainder of exam is unchanged. CONCLUSION: 1. ETT in good position. 2. Cardiomegaly with slight positive fluid balance. Carlin De Guzman MD on January 31, 2017 at 14:22 Board Certified Radiologist. This report was verified electronically.
[2017-01-31 14:51] LABS: AUTOMATED NEUTROPHIL # 6.2 TH/MM3 (1.8-7.7); BASOPHIL % 0.7 % (0.0-2.0); EOSINOPHIL % 0.1 % (0.0-4.0); HEMATOCRIT 25.5 % (35.0-46.0); LYMPH % 5.5 % (9.0-44.0); LYMPHOCYTE # 0.4 TH/MM3 (1.0-4.8); MEAN CELL VOLUME 96.7 FL (80.0-100.0); MEAN CORPUSCULAR HEMOGLOBIN 31.8 PG (27.0-34.0); MEAN CORPUSCULAR HGB CONC 32.8 % (32.0-36.0); MONO % 6.3 % (0.0-8.0); NEUT % 87.4 % (16.0-70.0); PLATELET COUNT 69 TH/MM3 (150-450); RED BLOOD COUNT 2.64 MIL/MM3 (4.00-5.30); RED CELL DISTRIBUTION WIDTH 17.6 % (11.6-17.2)
[2017-01-31] MEDS: PROPOFOL 1000 MG/100 ML INJ 100 ML IV SCH ×2 (15:00→20:45)
[2017-01-31 15:02] LABS: MAGNESIUM 1.5 MG/DL (1.5-2.5)
[2017-01-31 15:06] LABS: HEMO FLAGS AUTO DIFF
[2017-01-31 15:11] LABS: BETA HCG QUANT LESS THAN 1 MIU/ML (0-5)
[2017-01-31 15:18] LABS: BLOOD GAS BASE EXCESS -6.6 mmol/L (-2-2); BLOOD GAS CARBOXYHEMOGLOBIN 1.3 % (0-4); BLOOD GAS HCO3 18 mmol/L (22-26); BLOOD GAS O2 HGB SATURATION 98 % (90-100); BLOOD GAS OXYGEN CONTENT 11.6 Vol % (12.0-20.0); BLOOD GAS PCO2 32 mmHg (38-42); BLOOD GAS PO2 246 mmHg (61-120); CRITICAL VALUE NO; FIO2 50 %; OXYGEN DEVICE VENTILATOR
[2017-01-31 15:18] LABS: BLOOD, URINE NEG (NEG); GLUCOSE,URINE NEG (NEG); KETONE, URINE 40 mg/dL (NEG); NITRITE,URINE NEG (NEG)
[2017-01-31 15:19] LABS: DRAW SITE LT RADIAL; NUMBER OF ARTERIAL PUNCTURES 1; STAT NO; ULNAR PULSE PRESENT; VENT SETTINGS 500/14/PEEP 5
[2017-01-31] MEDS: SODIUM CHLOR 0.9% 1000 ML INJ 1,000 ML IV SCH (15:19)
[2017-01-31 15:24] LABS: MUCUS URINE MOD /lpf (OCC); URINE COLOR AMBER (YELLW/STRAW)
[2017-01-31 15:25] LABS: BACTERIA, URINE RARE /hpf; COMMENT (UR) CULT NOT INDICATED; CULTURE IF INDICATED CULT NOT INDICATED; RBC, URINE 0-3 /hpf (0-3); SQUAMOUS EPITHELIAL CELL URINE 0-5 /hpf (0-5); WBC, URINE 0-2 /hpf (0-5)
[2017-01-31] MEDS: cefTRIAXone INJ 1,000 MG in SODIUM CHLORIDE 0.9% INJ 100 ML IV SCH (15:25)
[2017-01-31 15:29] LABS: PLATELET ESTIMATE SMEAR LOW (NORMAL); PLATELET MORPHOLOGY NORMAL (NORMAL); SCAN/DIFF AUTO DIFF CONFIRMED
[2017-01-31] MEDS: DEXMEDETOMIDINE INJ 200 MCG in SODIUM CHLORIDE 0.9% INJ 50 ML IV SCH ×2 (15:35→22:50)
[2017-01-31] MEDS ORDERED: TERBUTALINE INJ 1 MG/ML AMP SQ PRN (15:45)
[2017-01-31] MEDS ORDERED: PHENYLEPHRINE INJ 160 MG in DEXTROSE 5% IN WATE 500 ML INJ 484 ML IV SCH ×2 (16:00)
[2017-01-31] MEDS ORDERED: MIDAZOLAM 100 MG/ML INJ 100 ML IV SCH (16:00)
[2017-01-31] MEDS: RESP: ALBUTEROL 2.5 MG/IPRATROPIUM 0.5 MG NEB (SCH) INH ×2 (16:00→20:56)
[2017-01-31] MEDS ORDERED: MULTIVITAMIN INJ 10 ML, THIAMINE INJ 100 MG, FOLIC ACID INJ 1 MG in SODIUM CHLORID 0.9%... IV ONE (16:00)
--- NOTE | 2017-01-31 16:11 | PD.PROCEDR ---
Central Line Procedure REASON FOR PROCEDURE Central venous access PROCEDURE PERFORMED Central line placement: L IJ CVL CONSENT Informed consent for procedure was obtained. The risks and benefits of the procedure were discussed to include but limited to bleeding, clot formation, infection, and even . ANESTHESIA Local injection of 1% Lidocaine DESCRIPTION OF THE PROCEDURE The patient was placed in supine, mild Trendelenburg position. The area was exposed and cleansed with ChloraPrep, times two. Large sterile drape was used to cover the patient, with the site exposed, under sterile conditions including cap, face mask, sterile gown, and sterile gloves. On single attempt, the introducer needle was inserted with negative pressure in syringe and venous flash was obtained. The guide wire was then advanced without any restriction and the needle was removed. The dilator was used without any complications. Using Seldinger technique the abx coated CVL 3 Lumen catheter was advanced over the guide wire to a depth of 20 centimeters. The guide wire was removed. All ports were aspirated with dark venous blood return and flushed easily with sterile saline. All ports were capped. Antibiotic disc was placed around central line at puncture site. The central line was secured to the skin with two interrupted 2.0 silk sutures. The area was bandaged with sterile see- through central line bandage. RADIOLOGICAL DATA Ultrasound guidance was used to locate L IJ. Doppler/color flow was used to confirm venous flow. COMPLICATIONS: No apparent complications ESTIMATED BLOOD LOSS: Less than 1 cc. Scott Ching MD Jan 31, 2017 16:11
[2017-01-31] MEDS ORDERED: SODIUM CHLORIDE 0.9% FLUSH 10 ML FLUSH IVF PRN (16:15)
[2017-01-31] MEDS ORDERED: PROPOFOL 200 MG/20 ML AMP IV ONE (16:28)
--- NOTE | 2017-01-31 16:56 | RADRPT ---
EXAM DATE/TIME: 01/31/2017 16:32 [facility] COMPARISON: CHEST SINGLE AP, January 31, 2017, 14:16. INDICATIONS : Central line placement. MEDICAL HISTORY : None. SURGICAL HISTORY : None. ENCOUNTER: Subsequent ACUITY: 1 day PAIN SCORE: Non-responsive. LOCATION: Bilateral chest FINDINGS: There is a stable ETT. Interval placement of a left IJ central line with tip near the cavoatrial junc tion. Excellent is enlarged. Diffuse interstitial prominence bilaterally. Remainder of the exam is un changed. CONCLUSION: 1. Interval placement of left internal jugular central line with tip near the cavoatrial junction. No pneumothorax. 2. The remainder of the exam is unchanged from radiograph earlier today. Carlin De Guzman MD on January 31, 2017 at 16:52 Board Certified Radiologist. This report was verified electronically.
[2017-01-31] MEDS ORDERED: DO NOT ADM ANY ANTICOAGULANT DRUGS PRN (17:00)
[2017-01-31] MEDS ORDERED: PHYTONADIONE INJ 10 MG in SODIUM CHLORIDE 0.9% INJ 50 ML IV ONE (17:00)
--- NOTE | 2017-01-31 17:18 | RADRPT ---
EXAM DATE/TIME: 01/31/2017 16:19 [facility] COMPARISON: No previous studies available for comparison. INDICATIONS : Abdominal pain. MEDICAL HISTORY : Hypertension. Gastroesophageal reflux disease. Thyroid disease. Anxiety. Claustraphobia. Depression . SURGICAL HISTORY : Cholecystectomy. Varicose vein removal. ENCOUNTER: Initial ACUITY: 1 day PAIN SCORE: Nonresponsive. LOCATION: Abdomen. MEASUREMENTS: LIVER: 19.9 cm length COMMON DUCT: 5 mm RIGHT KIDNEY: 11.6 x 6.2 x 4.9 cm LEFT KIDNEY: 11.0 x 4.8 x 5.6 cm SPLEEN: 16.7 cm length AORTA: Nonvisualized FINDINGS: LIVER: Liver is enlarged. It is heterogeneous. The liver surface is nodular. There is ascites seen throughou t the upper abdomen. COMMON DUCT: No intraluminal mass or stone visualized. GALLBLADDER: The patient is status post cholecystectomy. PANCREAS: The pancreas is obscured by overlying bowel gas. RIGHT KIDNEY: No hydronephrosis, stone or mass. LEFT KIDNEY: No hydronephrosis, stone or mass. SPLEEN: The spleen is enlarged. No focal splenic lesion is seen. AORTA: The retroperitoneum is obscured by overlying bowel gas. IVC: The retroperitoneum is obscured by overlying bowel gas. CONCLUSION: 1. Diffusely abnormal liver likely related to cirrhosis. There is ascites. 2. Splenomegaly. This can be secondary to portal hypertension. Vu Le MD on January 31, 2017 at 17:13 Board Certified Radiologist. This report was verified electronically.
[2017-01-31] MEDS: SODIUM CHLORIDE 0.9% FLUSH 10 ML FLUSH IVF SCH (17:29)
[2017-01-31] MEDS: MAGNESIUM SULFATE 1 GM PREMIX 100 ML IV SCH ×2 (17:48→19:10)
[2017-01-31] MEDS: ARTIFICIAL TEARS OPTH SOLN 15 ML BTL EACH EYE SCH (18:00)
[2017-01-31] MEDS: CHLORHEXIDINE 0.12% (ORAL KIT) 15 ML CUP MT SCH (20:03)
[2017-01-31] MEDS: SODIUM CHLORIDE 0.9% FLUSH 10 ML FLUSH IV FLUSH SCH (20:03)
[2017-01-31] MEDS: DOCUSATE SODIUM 50 MG/SENNA 8.6 MG TAB PO SCH (20:49)
[2017-01-31] MEDS ORDERED: SODIUM CHLORIDE 0.9% FLUSH 10 ML FLUSH IV FLUSH SCH (21:00)
[2017-01-31 23:33] LABS: HEMATOCRIT 26.5 % (35.0-46.0)
[2017-01-31 23:39] LABS: REVIEW FLAG FINAL
[2017-02-01] VITALS (44 sets, daily range): BP systolic 100–144; BP diastolic 64–95; PULSE 64–102; RESP 12–31; TEMP 98.3–99.1; O2SAT 86–100
[2017-02-01] MEDS: SODIUM CHLOR 0.9% 1000 ML INJ 1,000 ML IV SCH ×2 (02:56→14:30)
[2017-02-01] MEDS: DEXMEDETOMIDINE INJ 200 MCG in SODIUM CHLORIDE 0.9% INJ 50 ML IV SCH ×3 (02:56→19:22)
[2017-02-01] MEDS: RESP: ALBUTEROL 2.5 MG/IPRATROPIUM 0.5 MG NEB (SCH) INH ×4 (03:40→21:53)
[2017-02-01 04:37] LABS: AUTOMATED NEUTROPHIL # 4.2 TH/MM3 (1.8-7.7); BASOPHIL % 0.5 % (0.0-2.0); EOSINOPHIL % 0.3 % (0.0-4.0); HEMATOCRIT 25.9 % (35.0-46.0); LYMPH % 10.1 % (9.0-44.0); LYMPHOCYTE # 0.5 TH/MM3 (1.0-4.8); MEAN CORPUSCULAR HEMOGLOBIN 30.8 PG (27.0-34.0); MEAN CORPUSCULAR HGB CONC 33.8 % (32.0-36.0); MONO % 10.1 % (0.0-8.0); PLATELET COUNT 49 TH/MM3 (150-450); RED BLOOD COUNT 2.84 MIL/MM3 (4.00-5.30); RED CELL DISTRIBUTION WIDTH 19.6 % (11.6-17.2); WHITE BLOOD COUNT 5.2 TH/MM3 (4.0-11.0)
[2017-02-01 04:39] LABS: HEMO FLAGS AUTO DIFF
[2017-02-01 04:46] LABS: POTASSIUM 4.2 MEQ/L (3.5-5.1)
[2017-02-01 04:51] LABS: APTT (PATIENT) 29.7 SEC (24.3-30.1); INTERNATIONAL NORMALIZED RATIO 1.9 RATIO; PROTHROMBIN TIME - PATIENT 21.1 SEC (9.8-11.6)
[2017-02-01 04:56] LABS: PLATELET ESTIMATE SMEAR LOW (NORMAL); PLATELET MORPHOLOGY NORMAL (NORMAL); SCAN/DIFF AUTO DIFF CONFIRMED
[2017-02-01 04:57] LABS: BICARBONATE 27.8 MEQ/L (21.0-32.0); CALCIUM-PROTEIN CORRECTED 7.9 MG/DL (8.5-10.1); MAGNESIUM 2.1 MG/DL (1.5-2.5); TOTAL BILIRUBIN ADULT 8.5 MG/DL (0.2-1.0)
[2017-02-01] MEDS: LEVOTHYROXINE SODIUM 100 MCG VIAL IV PUSH SCH ×2 (05:47→05:55)
[2017-02-01] MEDS: CHLORHEXIDINE GLUCONATE 2 % 1 PACK (2 CLOTHS) TOP SCH (05:47)
[2017-02-01] MEDS: PANTOPRAZOLE INJ 80 MG in SODIUM CHLORIDE 0.9% INJ 100 ML IV SCH ×2 (05:56→22:39)
--- NOTE | 2017-02-01 06:06 | RADRPT ---
EXAM DATE/TIME: 02/01/2017 05:49 [facility] COMPARISON: CHEST SINGLE AP, January 31, 2017, 16:32. INDICATIONS : Respiratory distress. MEDICAL HISTORY : Hypertension. Gastroesophageal reflux disease. Thyroid disease. Anxiety. SURGICAL HISTORY : Cholecystectomy. ENCOUNTER: Subsequent ACUITY: 2 days PAIN SCORE: Non-responsive. LOCATION: Bilateral chest FINDINGS: Mild bibasilar and left perihilar infiltrate again noted, not significantly changed. No perceptible e ffusion. No pneumothorax. Mild cardiomegaly is unchanged. Endotracheal tube tip is at the level of the thoracic inlet. There is a left internal jugular central venous catheter again noted, tip in the superior vena cava. CONCLUSION: No significant change. Bibasilar and left perihilar consolidation again noted. Vu Lozano MD on February 01, 2017 at 6:03 Board Certified Radiologist. This report was verified electronically.
--- NOTE | 2017-02-01 06:34 | HHI.CCPN ---
Subjective Remarks/Hospital Course This is a 36-year-old female. Date of admission 01/31/2017. Date of consultation 01/31/2017. Past medical history includes hypothyroidism, anxiety, gastroesophageal reflux disease, hypertension, anemia. She also has a history of EtOH use/abuse. According to records obtained as she is currently intubated and unable to provide on her own she has been drinking approximately 1 L of vodka daily for the past 3 days. She presented to [facility] with acute onset of hematemesis and subacute black tarry stools 2 days. INR was elevated at 1.9. PTT within normal lives. Hemoglobin around 12. Alcohol level 115. Beta Hcg pending She was started on a Protonix drip 8 mg/hr after receiving a 80 mg bolus and octreotide drip 2 50 mcg/hr Patient was originally admitted under the hospitalist service. GI was consulted and an EGD was performed which revealed esophageal varices which were banded 3 and portal gastropathy. 700 cc crystalloid. 545 cc FFP. Estimate blood loss 200 cc. We are asked to keep the patient intubated by the GI service overnight with serial hemoglobins to be performed. Subjective 02/01: Tmax 99.1. For Dr. Palmer movement overnight. Transfused 2 units PRBC and 2 FFP since admission. Positive for liters. Bilirubin is increased 8.5. Currently down to Precedex at 0.4 mics grams per kilogram per hour Objective Vital Signs Date Time Temp Pulse Resp B/P Pulse Ox O2 Delivery O2 Flow Rate FiO2 02/01/17 06:00 35 02/01/17 06:00 90 13 106/72 97 02/01/17 04:00 98.6 01/31/17 11:50 Nasal Cannula 3 Intake and Output 01/31/17 01/31/17 02/01/17 08:00 16:00 00:00 Intake Total 2000 ml 2442 ml Output Total 750 ml 575 ml Balance 1250 ml 1867 ml Result Diagram: 02/01/17 0400 02/01/17 0400 Imaging Last Impressions Chest X-Ray 02/01/17 0000 Signed Impressions: Service Date/Time: January 05:49 - CONCLUSION: No significant change. Bibasilar and left perihilar consolidation again noted. Vu Lozano MD Abdomen Ultrasound 01/31/17 0000 Signed Impressions: Service Date/Time: Tuesday, January 31, 2017 16:19 - CONCLUSION: 1. Diffusely abnormal liver likely related to cirrhosis. There is ascites. 2. Splenomegaly. This can be secondary to portal hypertension. Vu Le MD Objective Remarks GENERAL: 36-year-old female, critically ill currently orotracheally intubated SKIN: Warm and dry. No rash. Well-perfused HEAD: Atraumatic. Normocephalic. EYES: Pupils equal and round about 5 mm bilaterally and reactive to 4 mm. Scant scleral icterus. No injection or drainage. ENT: No nasal bleeding or discharge. Mucous membranes pink and moist. NECK: Trachea midline. No JVD. Left IJ clean dry and intact without bleeding CARDIOVASCULAR: Tachycardic, RR. S1, S2. No S4. Without murmur RESPIRATORY: Clear to auscultation. Breath sounds equal bilaterally. GASTROINTESTINAL: Abdomen firm, distended. Positive succussion splash. Hepatomegaly identified 3-4 cm below the costal margin MUSCULOSKELETAL: Extremities with trace lower extremity edema. No obvious deformities. NEUROLOGICAL: Awake and alert. On the ventilator and following commands. Moves all 4 extremity spontaneously. Normal sensation. Urinary Catheter: Yes Assessment to: Continue Flores insert reason: Prolonged Immobilization Vascular Central Line Catheter: Yes Assessment to: Continue Date of Insertion: Jan 31, 2017 Line: Central Venous Catheter Side: Left Location: Internal, Jugular A/P Assessment and Plan Neuro/Psych: EtOH Anxiety Chronic benzodiazepine use Currently on 0.4 mcg/kg Per minute Precedex drip initiated for sedation while intubated Fentanyl drip writtenoff propofol/Versed needed Goal of RASS -2 Daily sedation vacation ? home dose Xanax 0.25 mg every 8 hours when necessary Vitamin bag daily 3 days including thiamine, folate and multivitamin. Monitor for DTs EtOH level 115 on arrival CV: History of hypertension LA Currently on normal saline at 84 cc an hour Not requiring vasopressors and/or antihypertensives EKG revealed no acute cardiopulmonary findings on admission Serial lactate until cleared. Currently 2.6 Resp: Acute respiratory failure [facility] 14/500/08/17/34 Ventilator bundle As needed albuterol therapy for dyspnea Spontaneous breathing trials in a.m. Requested by GI to keep intubated overnight due to high risk of rebleeding GI: Upper GI bleed Status post EGD with esophageal varices 3/portal gastropathy Elevated bilirubin Elevated AST/ALT ratio indicative of alcohol liver disease Gastroesophageal reflux disease Upper quadrant abdominal ascites Hepatosplenomegaly Status post EGD 01/[address] Murillo revealed esophageal varices with banding 3/ portal gastropathy Continue on Protonix drip at 8 mg an hour and octreotide drip at 50 mg an hour. Serial hemoglobins every 6 hours. 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 Home doses 150 mg daily according to old records Check TSH - 1.65 Sliding scale insulin if indicated to maintain euglycemia Renal: Monitor urine output Accurate I's and O's Follow BMP in a.m. Heme: Coagulopathy - secondary to liver disease Thrombocytopenia Acute posthem anemia Status post 2 FFP. Tx 2 UPRBC yesterday. 1 PRBC and 2 FFP this AM Serial hemoglobins every 6 hours. Transfuse as clinically indicated Recheck coag/fibrinogen in a.m. ID: Currently on Rocephin 1 g IV every 24 hours in setting of upper GI bleed FEN: Hypocalcemia 1 g calcium gluconate IV 1 now Replace electrolytes as clinically indicated MSK: PT evaluate and treat Access -Left IJ CVL day #2 place 01/31 Prophylaxis - GI - Protonix/octreotide drips - DVT - SCD/pharmacological prophylaxis contraindicated with active hemorrhage Critical Care: Level III Scott Ching MD Feb 01, 2017 06:33 - GI - Protonix/octreotide drips - DVT - SCD/pharmacological prophylaxis contraindicated with active hemorrhage Critical Care: The total critical care time was 55 minutes. Time to perform other separately billable procedures was not included in the critical care time. Scott Ching MD Feb 01, 2017 06:33
[2017-02-01] MEDS ORDERED: FUROSEMIDE 20 MG/2 ML VIAL IV PUSH PRN (06:55)
[2017-02-01] MEDS ORDERED: CALCIUM GLUCONATE INJ 1 GM in SODIUM CHLORIDE 0.9% INJ 100 ML IV ONE (07:00)
[2017-02-01] MEDS: CHLORHEXIDINE 0.12% (ORAL KIT) 15 ML CUP MT SCH ×2 (08:52→20:25)
[2017-02-01] MEDS: ARTIFICIAL TEARS OPTH SOLN 15 ML BTL EACH EYE SCH ×3 (08:53→17:32)
[2017-02-01] MEDS: SODIUM CHLORIDE 0.9% FLUSH 10 ML FLUSH IV FLUSH SCH ×2 (08:55→20:26)
[2017-02-01] MEDS: SODIUM CHLORIDE 0.9% FLUSH 10 ML FLUSH IVF SCH (08:55)
[2017-02-01] MEDS: DOCUSATE SODIUM 50 MG/SENNA 8.6 MG TAB PO SCH ×2 (08:55→21:00)
[2017-02-01] MEDS ORDERED: MULTIVITAMINS/MINERALS THERAPEUTIC TAB PO SCH (09:00)
[2017-02-01] MEDS ORDERED: THIAMINE HCL 100 MG TAB PO SCH (09:00)
[2017-02-01] MEDS ORDERED: FOLIC ACID 1 MG TAB PO SCH (09:00)
[2017-02-01] MEDS: MULTIVITAMIN INJ 10 ML, THIAMINE INJ 100 MG, FOLIC ACID INJ 1 MG in SODIUM CHLORID 0.9%... IV SCH (09:34)
[2017-02-01] MEDS: cefTRIAXone INJ 1,000 MG in SODIUM CHLORIDE 0.9% INJ 100 ML IV SCH (14:36)
[2017-02-01] MEDS: OCTREOTIDE INJ 500 MCG in SODIUM CHLORID 0.9% 500 ML INJ 500 ML IV SCH (15:25)
--- NOTE | 2017-02-01 16:30 | MR ---
cc: TILA VO M.D. DATE: 01/31/2017. REFERRING PHYSICIAN: Dr. Carranza. DATE OF : 1980. TYPE OF PROCEDURE PERFORMED: Upper endoscopy with band ligation. ENDOSCOPIST: Tila Vo MD. INDICATIONS FOR THE PROCEDURE: GI bleed. CONSENT: After the risks, benefits, alternatives, indications, limitations were explained to the patient, she signed informed consent. She was informed about the risk of bleeding, perforation, over- sedation, allergic reaction to the medication, missed lesion or failed procedure. DESCRIPTION OF THE PROCEDURE IN DETAIL: The patient was placed in the left lateral decubitus and after the patient was fully sedated by anesthesia, an upper endoscope was gently inserted into the oral cavity and under direct visualization, the esophagus was intubated. Then the scope was gently inserted into the stomach and advanced to the duodenum up to the second portion. The scope was slowly withdrawn and the mucosa was fully examined including color, texture, anatomy and motility. In the fundus, retroflexion was performed and the scope was withdrawn and the procedure terminated. She tolerated the procedure well with no immediate complications. FINDINGS: Large amount of blood in the stomach, mostly in the fundus. Aggressive washing and suctioning was done. Approximately 200 mL of fresh blood was suctioned. Esophageal varices grade II to III status post banding x3, portal gastropathy after clearing the stomach with water and no active bleeding was seen. RECOMMENDATIONS: 1. N.p.o. 2. Keep the patient intubated for the next 24 hours. 3. ICU transfer. 4. Stat CBC. 5. Transfuse 2 units of packed red blood cells if hemoglobin less than 8. 6. IV antibiotics, IV Protonix and IV octreotide. 7. Fresh frozen plasma. 8. Supportive care. 9. The patient will need to stop drinking. 10. Abdominal ultrasound. The findings were discussed with the and he was informed that the patient was transferred to the unit and she will remain intubated for the night. Thank you again and we will continue to follow the patient along with you. Tila Vo MD BSB/JCSobeida /6:25 PM /4:29 PM
[2017-02-01 17:09] LABS: HEMATOCRIT 27.9 % (35.0-46.0)
[2017-02-01 17:23] LABS: REVIEW FLAG FINAL
--- NOTE | 2017-02-01 18:10 | HHI.GIFU ---
GI Follow-up Note Consult Follow-up Subjective: Patient laying in bed comfortably, intubated, awake.Feels fine .Melanotic stools, no active bleeding Objective: PHYSICAL EXAMINATION: Vitals signs stable No fever Vital Signs Date Time Temp Pulse Resp B/P Pulse Ox O2 Delivery O2 Flow Rate FiO2 02/01/17 17:00 91 16 127/83 99 02/01/17 16:00 30 02/01/17 16:00 98.4 84 12 144/95 99 02/01/17 16:00 84 02/01/17 15:03 99 30 02/01/17 15:00 80 13 119/81 96 02/01/17 14:00 78 02/01/17 14:00 88 18 117/80 98 02/01/17 13:00 84 14 110/75 96 02/01/17 12:00 98.8 82 13 116/73 97 02/01/17 12:00 30 02/01/17 12:00 84 02/01/17 11:12 98.3 86 14 106/71 96 02/01/17 11:00 84 13 106/71 96 02/01/17 10:27 98 30 HEENT: Pupils round and reactive to light; normocephalic; atraumatic; jaundice. Throat is clear, ET tube in place NECK: Neck is supple, no JVD, no lymphadenopathy. CHEST: Chest is clear to auscultation and percussion. CARDIAC: Regular rate and rhythm with no murmur gallop or rubs. ABDOMEN: Soft, mildly distended, nontender; no hepatosplenomegaly; bowel sounds are present in all four quadrants. EXTREMITIES: No clubbing, cyanosis, or edema. SKIN: Normal; no rash; jaundice. 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 Available Data (labs, X- Rays, Procedues) : Laboratory Tests Test 01/31/17 01/31/17 01/31/17 01/31/17 09:30 10:54 14:30 14:40 White Blood Count 8.0 TH/MM3 7.0 TH/MM3 Red Blood Count 3.60 MIL/MM3 2.64 MIL/MM3 Hemoglobin 11.8 GM/DL 8.4 GM/DL Hematocrit 33.7 % 25.5 % Mean Corpuscular Volume 93.6 FL 96.7 FL Mean Corpuscular Hemoglobin 32.7 PG 31.8 PG Mean Corpuscular Hemoglobin 34.9 % 32.8 % Concent Red Cell Distribution Width 16.6 % 17.6 % Platelet Count 82 TH/MM3 69 TH/MM3 Mean Platelet Volume 9.8 FL 10.2 FL Neutrophils (%) (Auto) 82.5 % 87.4 % Lymphocytes (%) (Auto) 9.5 % 5.5 % Monocytes (%) (Auto) 7.0 % 6.3 % Eosinophils (%) (Auto) 0.3 % 0.1 % Basophils (%) (Auto) 0.7 % 0.7 % Neutrophils # (Auto) 6.5 TH/MM3 6.2 TH/MM3 Lymphocytes # (Auto) 0.8 TH/MM3 0.4 TH/MM3 Monocytes # (Auto) 0.6 TH/MM3 0.4 TH/MM3 Eosinophils # (Auto) 0.0 TH/MM3 0.0 TH/MM3 Basophils # (Auto) 0.1 TH/MM3 0.0 TH/MM3 CBC Comment AUTO DIFF AUTO DIFF Differential Comment AUTO DIFF AUTO DIFF CONFIRMED CONFIRMED Platelet Estimate LOW LOW Platelet Morphology Comment NORMAL NORMAL Prothrombin Time 21.9 SEC Prothromb Time International 1.9 RATIO Ratio Activated Partial 27.8 SEC Thromboplast Time Sodium Level 141 MEQ/L Potassium Level 3.5 MEQ/L Chloride Level 101 MEQ/L Carbon Dioxide Level 25.1 MEQ/L Anion Gap 15 MEQ/L Blood Urea Nitrogen 13 MG/DL Creatinine 0.55 MG/DL Estimat Glomerular Filtration 124 ML/MIN Rate Random Glucose 118 MG/DL Calcium Level 9.1 MG/DL Total Bilirubin 5.7 MG/DL Aspartate Amino Transf 307 U/L (AST/SGOT) Alanine Aminotransferase 104 U/L (ALT/SGPT) Alkaline Phosphatase 151 U/L Total Protein 7.8 GM/DL Albumin 3.1 GM/DL Lipase 234 U/L Ethyl Alcohol Level 115 MG/DL Blood Type A POSITIVE Antibody Screen NEGATIVE Crossmatch Leukocyte-Reduced Red Blood Cells Blood Bank Comment Nasal Screen MRSA (PCR) MRSA NOT DETECTED Lactic Acid Level 8.2 mmol/L Phosphorus Level 3.5 MG/DL Magnesium Level 1.5 MG/DL Thyroid Stimulating Hormone 1.650 uIU/ML 3rd Gen Human Chorionic Gonadotropin, LESS THAN 1 Quant MIU/ML Urine Color PARK Urine Turbidity CLEAR Urine pH 6.0 Urine Specific [place] 1.026 Urine Protein TRACE mg/dL Urine Glucose (UA) NEG mg/dL Urine Ketones 40 mg/dL Urine Occult Blood NEG Urine Nitrite NEG Urine Bilirubin SMALL Urine Leukocyte Esterase NEG Urine RBC 0-3 /hpf Urine WBC 0-2 /hpf Urine Squamous Epithelial 0-5 /hpf Cells Urine Bacteria RARE /hpf Urine Mucus MOD /lpf Microscopic Urinalysis Comment CULT NOT INDICATED Test 01/31/17 01/31/17 01/31/17 02/01/17 15:10 15:12 23:15 04:00 Hepatitis A IgM Antibody NEGATIVE Hepatitis B Surface Antigen NEGATIVE Hepatitis B Core IgM Antibody NEGATIVE Hepatitis C Antibody NEGATIVE Blood Gas Puncture Site LT RADIAL Blood Gas Patient Temperature 37.0 Blood Gas HCO3 18 mmol/L Blood Gas Base Excess -6.6 mmol/L Blood Gas Oxygen Saturation 98 % Arterial Blood pH 7.37 Arterial Blood Partial 32 mmHg Pressure CO2 Arterial Blood Partial 246 mmHg Pressure O2 Arterial Blood Oxygen Content 11.6 Vol % Arterial Blood 1.3 % Carboxyhemoglobin Arterial Blood Methemoglobin 1.0 % Blood Gas Hemoglobin 8.0 G/DL Oxygen Delivery Device VENTILATOR Blood Gas Ventilator Setting 500/14/PEEP 5 Blood Gas Inspired Oxygen 50 % Hemoglobin 8.9 GM/DL 8.8 GM/DL Hematocrit 26.5 % 25.9 % Lactic Acid Level 3.0 mmol/L 2.6 mmol/L White Blood Count 5.2 TH/MM3 Red Blood Count 2.84 MIL/MM3 Mean Corpuscular Volume 91.0 FL Mean Corpuscular Hemoglobin 30.8 PG Mean Corpuscular Hemoglobin 33.8 % Concent Red Cell Distribution Width 19.6 % Platelet Count 49 TH/MM3 Mean Platelet Volume 10.0 FL Neutrophils (%) (Auto) 79.0 % Lymphocytes (%) (Auto) 10.1 % Monocytes (%) (Auto) 10.1 % Eosinophils (%) (Auto) 0.3 % Basophils (%) (Auto) 0.5 % Neutrophils # (Auto) 4.2 TH/MM3 Lymphocytes # (Auto) 0.5 TH/MM3 Monocytes # (Auto) 0.5 TH/MM3 Eosinophils # (Auto) 0.0 TH/MM3 Basophils # (Auto) 0.0 TH/MM3 CBC Comment AUTO DIFF Differential Comment AUTO DIFF CONFIRMED Platelet Estimate LOW Platelet Morphology Comment NORMAL Prothrombin Time 21.1 SEC Prothromb Time International 1.9 RATIO Ratio Activated Partial 29.7 SEC Thromboplast Time Sodium Level 144 MEQ/L Potassium Level 4.2 MEQ/L Chloride Level 108 MEQ/L Carbon Dioxide Level 27.8 MEQ/L Anion Gap 8 MEQ/L Blood Urea Nitrogen 20 MG/DL Creatinine 0.58 MG/DL Estimat Glomerular Filtration 117 ML/MIN Rate Random Glucose 130 MG/DL Calcium Level 7.3 MG/DL Protein Corrected Calcium 7.9 MG/DL Phosphorus Level 2.9 MG/DL Magnesium Level 2.1 MG/DL Total Bilirubin 8.5 MG/DL Aspartate Amino Transf 227 U/L (AST/SGOT) Alanine Aminotransferase 74 U/L (ALT/SGPT) Alkaline Phosphatase 100 U/L Total Protein 6.0 GM/DL Albumin 2.6 GM/DL Test 02/01/17 02/01/17 02/01/17 06:35 08:25 16:25 Blood Type A POSITIVE Crossmatch Leukocyte-Reduced Red Blood Cells Blood Bank Comment Fibrinogen 138 mg/dL Lactic Acid Level 2.7 mmol/L Hemoglobin 9.5 GM/DL Hematocrit 27.9 % ASSESSMENT/PLAN: ugi bleeding secondary esophageal varices -s/p banding coagulopathy secondary etoh liver disease liver cirrhosis secondary etoh elevated liver enzymes secondary etoh Recommendations ok to extubate from gi point monitor lfts closely continue IV octreotide, Protonix vitamin k fu labs will need to stop drinking upon discharge Cecilio discriminant function 52-we will start steroids for now iv antibiotics prognosis guarded It was a pleasure seeing Emerita Sharp. Thank you for this consult. Entered by: Tila Daniels MD Feb 01, 2017 18:10
[2017-02-01] MEDS ORDERED: methylPREDNISolone SOD SUCC 125 MG/2 ML VIAL IV PUSH ONE (18:30)
[2017-02-01] MEDS: LORazepam 2 MG/ML VIAL IV PUSH PRN (20:26)
[2017-02-01 22:01] LABS: HEMATOCRIT 28.6 % (35.0-46.0)
[2017-02-01 22:11] LABS: REVIEW FLAG FINAL
[2017-02-02] VITALS (27 sets, daily range): BP systolic 129–154; BP diastolic 79–102; PULSE 56–136; RESP 16–35; TEMP 97.6–99.7; O2SAT 90–98
[2017-02-02] MEDS: LORazepam 2 MG/ML VIAL IV PUSH PRN ×8 (00:34→20:12)
[2017-02-02] MEDS: OCTREOTIDE INJ 500 MCG in SODIUM CHLORID 0.9% 500 ML INJ 500 ML IV SCH ×3 (01:32→21:30)
[2017-02-02] MEDS: SODIUM CHLOR 0.9% 1000 ML INJ 1,000 ML IV SCH ×2 (01:33→13:40)
[2017-02-02 03:06] LABS: HEMATOCRIT 30.8 % (35.0-46.0)
[2017-02-02] MEDS: CHLORHEXIDINE GLUCONATE 2 % 1 PACK (2 CLOTHS) TOP SCH (03:11)
[2017-02-02 03:14] LABS: REVIEW FLAG FINAL
[2017-02-02] MEDS: RESP: ALBUTEROL 2.5 MG/IPRATROPIUM 0.5 MG NEB (SCH) INH ×3 (03:28→20:58)
[2017-02-02] MEDS: LEVOTHYROXINE SODIUM 100 MCG VIAL IV PUSH SCH (05:04)
[2017-02-02 05:19] LABS: AUTOMATED NEUTROPHIL # 4.4 TH/MM3 (1.8-7.7); BASOPHIL % 0.5 % (0.0-2.0); EOSINOPHIL % 0.7 % (0.0-4.0); LYMPH % 9.4 % (9.0-44.0); LYMPHOCYTE # 0.5 TH/MM3 (1.0-4.8); MEAN CELL VOLUME 90.4 FL (80.0-100.0); MEAN CORPUSCULAR HEMOGLOBIN 30.1 PG (27.0-34.0); MEAN CORPUSCULAR HGB CONC 33.3 % (32.0-36.0); MONO % 5.1 % (0.0-8.0); NEUT % 84.3 % (16.0-70.0); PLATELET COUNT 56 TH/MM3 (150-450); RED BLOOD COUNT 3.21 MIL/MM3 (4.00-5.30); RED CELL DISTRIBUTION WIDTH 20.2 % (11.6-17.2); WHITE BLOOD COUNT 5.2 TH/MM3 (4.0-11.0)
[2017-02-02 05:23] LABS: HEMO FLAGS AUTO DIFF
[2017-02-02 05:29] LABS: CHLORIDE 108 MEQ/L (98-107); POTASSIUM 3.5 MEQ/L (3.5-5.1); SODIUM (NA) 144 MEQ/L (136-145)
[2017-02-02 05:33] LABS: ANION GAP 8 MEQ/L (5-15); APTT (PATIENT) 27.8 SEC (24.3-30.1); BICARBONATE 28.4 MEQ/L (21.0-32.0); INTERNATIONAL NORMALIZED RATIO 1.8 RATIO; MAGNESIUM 2.2 MG/DL (1.5-2.5); PLATELET ESTIMATE SMEAR LOW (NORMAL); PLATELET MORPHOLOGY ENLARGED (NORMAL); PROTHROMBIN TIME - PATIENT 20.9 SEC (9.8-11.6); SCAN/DIFF AUTO DIFF CONFIRMED
[2017-02-02 05:34] LABS: BLOOD UREA NITROGEN 15 MG/DL (7-18)
[2017-02-02 05:36] LABS: ALT (GPT) 72 U/L (10-53); AST (GOT) 183 U/L (15-37); GLOMERULAR FILTRATION RATE 146 ML/MIN (>89)
[2017-02-02 05:41] LABS: ALKALINE PHOSPHATASE 98 U/L (45-117); TOTAL BILIRUBIN ADULT 7.9 MG/DL (0.2-1.0)
[2017-02-02] MEDS ORDERED: POTASSIUM PHOSPHATE INJ 30 MMOL in SODIUM CHLOR 0.9% 250 ML INJ 250 ML IV ONE (06:30)
[2017-02-02] MEDS: DEXMEDETOMIDINE INJ 200 MCG in SODIUM CHLORIDE 0.9% INJ 50 ML IV SCH (06:46)
[2017-02-02] MEDS ORDERED: DEXMEDETOMIDINE INJ 200 MCG in SODIUM CHLORIDE 0.9% INJ 50 ML IV SCH (07:45)
[2017-02-02] MEDS: CHLORHEXIDINE 0.12% (ORAL KIT) 15 ML CUP MT SCH ×2 (08:00→20:00)
--- NOTE | 2017-02-02 08:26 | HHI.CCPN ---
Subjective Remarks/Hospital Course This is a 36-year-old female. Date of admission 01/31/2017. Date of consultation 01/31/2017. Past medical history includes hypothyroidism, anxiety, gastroesophageal reflux disease, hypertension, anemia. She also has a history of EtOH use/abuse. According to records obtained as she is currently intubated and unable to provide on her own she has been drinking approximately 1 L of vodka daily for the past 3 days. She presented to [facility] with acute onset of hematemesis and subacute black tarry stools 2 days. INR was elevated at 1.9. PTT within normal lives. Hemoglobin around 12. Alcohol level 115. Beta Hcg pending She was started on a Protonix drip 8 mg/hr after receiving a 80 mg bolus and octreotide drip 2 50 mcg/hr Patient was originally admitted under the hospitalist service. GI was consulted and an EGD was performed which revealed esophageal varices which were banded 3 and portal gastropathy. 700 cc crystalloid. 545 cc FFP. Estimate blood loss 200 cc. We are asked to keep the patient intubated by the GI service overnight with serial hemoglobins to be performed. 02/01: Tmax 99.1. 4 bowel movement overnight. Transfused 2 units PRBC and 2 FFP since admission. Positive for liters. Bilirubin is increased 8.5. Currently down to Precedex at 0.4 mics grams per kilogram per hour Subjective 02/02: Extubated late last night. Quite agitated requiring multiple doses of Ativan. Precedex drip will be initiated. Remains nothing by mouth. Objective Vital Signs Date Time Temp Pulse Resp B/P Pulse Ox O2 Delivery O2 Flow Rate FiO2 02/02/17 07:00 98.7 86 20 142/91 92 02/02/17 07:00 Nasal Cannula 4.00 02/01/17 16:00 30 Intake and Output 02/01/17 02/01/17 02/02/17 08:00 16:00 00:00 Intake Total 1133 ml 2688 ml 2089 ml Output Total 325 ml 400 ml 300 ml Balance 808 ml 2288 ml 1789 ml Result Diagram: 02/02/17 0500 02/02/17 0500 Imaging Last Impressions Chest X-Ray 02/01/17 0000 Signed Impressions: Service Date/Time: January 05:49 - CONCLUSION: No significant change. Bibasilar and left perihilar consolidation again noted. Vu Lozano MD Abdomen Ultrasound 01/31/17 0000 Signed Impressions: Service Date/Time: Tuesday, January 31, 2017 16:19 - CONCLUSION: 1. Diffusely abnormal liver likely related to cirrhosis. There is ascites. 2. Splenomegaly. This can be secondary to portal hypertension. Vu Le MD Objective Remarks GENERAL: 36-year-old female, critically ill currently resting in bed yelling and screaming SKIN: Warm and dry. No rash. Well-perfused. Slightly jaundiced HEAD: Atraumatic. Normocephalic. EYES: Pupils equal and round about 4 mm bilaterally and reactive to 3 mm. Scant scleral icterus. No injection or drainage. ENT: No nasal bleeding or discharge. Mucous membranes pink and moist. NECK: Trachea midline. No JVD. Left IJ clean dry and intact without bleeding CARDIOVASCULAR: Tachycardic, RR. S1, S2. No S4. Without murmur RESPIRATORY: Clear to auscultation. Breath sounds equal bilaterally. GASTROINTESTINAL: Abdomen firm, distended. Positive succussion splash. Hepatomegaly identified 3-4 cm below the costal margin MUSCULOSKELETAL: Extremities with trace lower extremity edema. No obvious deformities. NEUROLOGICAL: Awake and alert. Strength appears equal and symmetric bilaterally.. Moves all 4 extremity spontaneously. Normal sensation. Urinary Catheter: Yes Assessment to: Continue Flores insert reason: Prolonged Immobilization Vascular Central Line Catheter: Yes Assessment to: Continue Date of Insertion: Jan 31, 2017 Line: Central Venous Catheter Side: Left Location: Internal, Jugular A/P Assessment and Plan Neuro/Psych: EtOH Anxiety Chronic benzodiazepine use Currently on Precedex drip at 0.4 mg/kg per minute and actively titrate to effect on RASS of 0 Librium 25 mg 3 times a day ordered CIWA protocol initiated ? home dose Xanax 0.25 mg every 8 hours when necessary Vitamin bag daily 3 days including thiamine, folate and multivitamin be continued Monitor for DTs EtOH level 115 on arrival CV: History of hypertension LA Currently on normal saline at 84 cc an hour Not requiring vasopressors and/or antihypertensives EKG revealed no acute cardiopulmonary findings on admission Serial lactate until cleared. Currently 2.2 Resp: Acute respiratory failure Nasal cannula to maintain saturations greater than or equal to 92%. Currently in 4 L Incentive spirometry while awake As needed albuterol therapy for dyspnea At risk for aspiration GI: Upper GI bleed Status post EGD with esophageal varices 3/portal gastropathy Elevated bilirubin Elevated AST/ALT ratio indicative of alcohol liver disease Gastroesophageal reflux disease Upper quadrant abdominal ascites Hepatosplenomegaly Status post EGD 01/[address] Murillo revealed esophageal varices with banding 3/ portal gastropathy Continue on Protonix drip at 8 mg an hour and octreotide drip at 50 mg an hour for gastroenterology. Serial hemoglobins remains stable. Recheck this evening Abdominal ultrasound . revealed hepatosplenomegaly, diffusely enlarged liver likely secondary to alcohol cirrhosis and abdominal ascites Hepatitis panel ordered Will likely need paracentesis at some point Meld score is 19. Shivani alcoholic hepatitis score is 7. Maddreys discriminant function for alcohol hepatitis is 49 today. Scores of 32 and above can reveal poor prognosis and they be helped by steroids. Received 125 mg Solu-Medrol yesterday and currently at 40 mg by mouth daily. : Flores catheter will be placed for accurate I's and O's in a critically ill patient Endo: Hypothyroidism Hyperglycemia of critical illness/stress Continue Levoxyl home doses 150 mcg daily according to old records/from 2014 admission. Medicine reconciliation still not completed after 48 hours inpatient Check TSH - 1.65 Sliding scale insulin if indicated to maintain euglycemia Renal: Monitor urine output Accurate I's and O's Follow BMP in a.m. Heme: Coagulopathy - secondary to liver disease Thrombocytopenia Acute posthem anemia Status post 2 FFP. Tx 2 UPRBC yesterday. 1 PRBC and 2 FFP and one of cryoprecipitate 02/01 Will check hemoglobin this afternoon. Transfuse as clinically indicated Recheck coag/fibrinogen in a.m. ID: Currently on Rocephin 1 g IV every 24 hours in setting of upper GI bleed day #3 FEN: Hypocalcemia Hypophosphatemia 1 g calcium gluconate IV 1 now 30 mmol potassium phosphate IV 1 now. Recheck this evening ICU electrolyte protocol initiated Replace electrolytes as clinically indicated MSK: PT evaluate and treat Access -Left IJ CVL day #3 place 01/31 Prophylaxis - GI - Protonix/octreotide drips - DVT - SCD/pharmacological prophylaxis contraindicated with active hemorrhage Critical Care: Level III including titration of sedation medications, adjusting oral medications Scott Ching MD Feb 02, 2017 08:26
[2017-02-02] MEDS: ARTIFICIAL TEARS OPTH SOLN 15 ML BTL EACH EYE SCH ×3 (09:00→17:38)
[2017-02-02] MEDS ORDERED: POTASSIUM CHLORIDE 25 MEQ EFFERVESCENT TAB PO PRN (09:00)
[2017-02-02] MEDS ORDERED: POTASSIUM CHLOR 20 MEQ PREMIX 100 ML IV PRN ×2 (09:00)
[2017-02-02] MEDS ORDERED: MAGNESIUM SULFATE INJ 4 GM in SODIUM CHLORIDE 0.9% INJ 92 ML IV PRN (09:00)
[2017-02-02] MEDS ORDERED: POTASSIUM PHOSPHATE MONOBASIC 500 MG TAB PO PRN (09:00)
[2017-02-02] MEDS ORDERED: POTASSIUM PHOSPHATE INJ 30 MMOL in SODIUM CHLOR 0.9% 250 ML INJ 250 ML IV PRN (09:00)
[2017-02-02] MEDS: DOCUSATE SODIUM 50 MG/SENNA 8.6 MG TAB PO SCH ×2 (09:00→21:00)
[2017-02-02] MEDS: prednisoLONE 10 MG ODT TAB PO SCH (09:00)
[2017-02-02] MEDS ORDERED: MAGNESIUM OXIDE 400 MG TAB PO PRN (09:00)
[2017-02-02] MEDS ORDERED: POTASSIUM PHOSPHATE MONOBASIC 500 MG TAB PO/TUBE PRN (09:00)
[2017-02-02] MEDS ORDERED: SODIUM PHOSPHATE INJ 30 MMOL in SODIUM CHLOR 0.9% 250 ML INJ 240 ML IV PRN (09:00)
[2017-02-02] MEDS ORDERED: POTASSIUM CHLOR 40 MEQ PREMIX 100 ML IV PRN ×2 (09:00)
[2017-02-02] MEDS ORDERED: MAGNESIUM SULFATE INJ 2 GM in SODIUM CHLORIDE 0.9% INJ 96 ML IV PRN (09:00)
[2017-02-02] MEDS: MULTIVITAMIN INJ 10 ML, THIAMINE INJ 100 MG, FOLIC ACID INJ 1 MG in SODIUM CHLORID 0.9%... IV SCH (09:24)
[2017-02-02] MEDS: SODIUM CHLORIDE 0.9% FLUSH 10 ML FLUSH IV FLUSH SCH ×2 (09:29→20:20)
[2017-02-02] MEDS: SODIUM CHLORIDE 0.9% FLUSH 10 ML FLUSH IVF SCH (09:29)
[2017-02-02] MEDS: chlordiazePOXIDE 25 MG CAP PO SCH ×3 (11:34→17:39)
[2017-02-02] MEDS: PANTOPRAZOLE INJ 80 MG in SODIUM CHLORIDE 0.9% INJ 100 ML IV SCH ×2 (11:35→21:30)
[2017-02-02] MEDS: cefTRIAXone INJ 1,000 MG in SODIUM CHLORIDE 0.9% INJ 100 ML IV SCH (13:51)
[2017-02-02] MEDS: ZIPRASIDONE MESYLATE 20 MG VIAL IM PRN (14:47)
--- NOTE | 2017-02-02 18:03 | HHI.GIFU ---
GI Follow-up Note Consult Follow-up Subjective: Patient laying in bed, recently extubated, sedated, just received Ativan.No further bleeding . No oral intake establish due to severe agitation Objective: PHYSICAL EXAMINATION: Vitals signs stable No fever Vital Signs Date Time Temp Pulse Resp B/P Pulse Ox O2 Delivery O2 Flow Rate FiO2 02/02/17 17:00 60 02/02/17 16:00 106 02/02/17 15:53 64 19 133/83 02/02/17 15:00 64 23 02/02/17 14:00 56 18 138/80 02/02/17 14:00 56 02/02/17 13:00 56 19 02/02/17 12:00 99.7 110 33 137/98 92 02/02/17 12:00 124 02/02/17 11:38 56 18 150/79 02/02/17 11:00 58 19 154/88 HEENT: Pupils round and reactive to light; normocephalic; atraumatic; jaundice. Throat is clear. NECK: Neck is supple, no JVD, no lymphadenopathy. CHEST: Chest is clear to auscultation and percussion. CARDIAC: Regular rate and rhythm with no murmur gallop or rubs. ABDOMEN: Soft, nondistended, nontender; no hepatosplenomegaly; bowel sounds are present in all four quadrants. EXTREMITIES: No clubbing, cyanosis, or edema. SKIN: Normal; no rash; jaundice. 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 Available Data (labs, X- Rays, Procedues) : Laboratory Tests Test 01/31/17 02/01/17 02/01/17 02/01/17 23:15 04:00 06:35 08:25 Hemoglobin 8.9 GM/DL 8.8 GM/DL Hematocrit 26.5 % 25.9 % Lactic Acid Level 3.0 mmol/L 2.6 mmol/L 2.7 mmol/L White Blood Count 5.2 TH/MM3 Red Blood Count 2.84 MIL/MM3 Mean Corpuscular Volume 91.0 FL Mean Corpuscular Hemoglobin 30.8 PG Mean Corpuscular Hemoglobin 33.8 % Concent Red Cell Distribution Width 19.6 % Platelet Count 49 TH/MM3 Mean Platelet Volume 10.0 FL Neutrophils (%) (Auto) 79.0 % Lymphocytes (%) (Auto) 10.1 % Monocytes (%) (Auto) 10.1 % Eosinophils (%) (Auto) 0.3 % Basophils (%) (Auto) 0.5 % Neutrophils # (Auto) 4.2 TH/MM3 Lymphocytes # (Auto) 0.5 TH/MM3 Monocytes # (Auto) 0.5 TH/MM3 Eosinophils # (Auto) 0.0 TH/MM3 Basophils # (Auto) 0.0 TH/MM3 CBC Comment AUTO DIFF Differential Comment AUTO DIFF CONFIRMED Platelet Estimate LOW Platelet Morphology Comment NORMAL Prothrombin Time 21.1 SEC Prothromb Time International 1.9 RATIO Ratio Activated Partial 29.7 SEC Thromboplast Time Sodium Level 144 MEQ/L Potassium Level 4.2 MEQ/L Chloride Level 108 MEQ/L Carbon Dioxide Level 27.8 MEQ/L Anion Gap 8 MEQ/L Blood Urea Nitrogen 20 MG/DL Creatinine 0.58 MG/DL Estimat Glomerular Filtration 117 ML/MIN Rate Random Glucose 130 MG/DL Calcium Level 7.3 MG/DL Protein Corrected Calcium 7.9 MG/DL Phosphorus Level 2.9 MG/DL Magnesium Level 2.1 MG/DL Total Bilirubin 8.5 MG/DL Aspartate Amino Transf 227 U/L (AST/SGOT) Alanine Aminotransferase 74 U/L (ALT/SGPT) Alkaline Phosphatase 100 U/L Total Protein 6.0 GM/DL Albumin 2.6 GM/DL Blood Type A POSITIVE Crossmatch Leukocyte-Reduced Red Blood Cells Blood Bank Comment Fibrinogen 138 mg/dL Test 02/01/17 02/01/17 02/01/17 02/01/17 16:25 16:30 17:32 21:45 Hemoglobin 9.5 GM/DL 9.7 GM/DL Hematocrit 27.9 % 28.6 % Blood Bank Comment Lactic Acid Level 2.8 mmol/L 2.0 mmol/L Test 02/02/17 02/02/17 02/02/17 02/02/17 02:50 05:00 10:12 16:14 Hemoglobin 10.0 GM/DL 9.7 GM/DL 9.9 GM/DL Hematocrit 30.8 % 29.0 % 30.0 % Lactic Acid Level 2.2 mmol/L White Blood Count 5.2 TH/MM3 Red Blood Count 3.21 MIL/MM3 Mean Corpuscular Volume 90.4 FL Mean Corpuscular Hemoglobin 30.1 PG Mean Corpuscular Hemoglobin 33.3 % Concent Red Cell Distribution Width 20.2 % Platelet Count 56 TH/MM3 Mean Platelet Volume 9.8 FL Neutrophils (%) (Auto) 84.3 % Lymphocytes (%) (Auto) 9.4 % Monocytes (%) (Auto) 5.1 % Eosinophils (%) (Auto) 0.7 % Basophils (%) (Auto) 0.5 % Neutrophils # (Auto) 4.4 TH/MM3 Lymphocytes # (Auto) 0.5 TH/MM3 Monocytes # (Auto) 0.3 TH/MM3 Eosinophils # (Auto) 0.0 TH/MM3 Basophils # (Auto) 0.0 TH/MM3 CBC Comment AUTO DIFF Differential Comment AUTO DIFF CONFIRMED Platelet Estimate LOW Platelet Morphology Comment ENLARGED Prothrombin Time 20.9 SEC Prothromb Time International 1.8 RATIO Ratio Activated Partial 27.8 SEC Thromboplast Time Sodium Level 144 MEQ/L Potassium Level 3.5 MEQ/L Chloride Level 108 MEQ/L Carbon Dioxide Level 28.4 MEQ/L Anion Gap 8 MEQ/L Blood Urea Nitrogen 15 MG/DL Creatinine 0.48 MG/DL Estimat Glomerular Filtration 146 ML/MIN Rate Random Glucose 146 MG/DL Calcium Level 7.6 MG/DL Phosphorus Level 0.7 MG/DL 1.0 MG/DL Magnesium Level 2.2 MG/DL Total Bilirubin 7.9 MG/DL Aspartate Amino Transf 183 U/L (AST/SGOT) Alanine Aminotransferase 72 U/L (ALT/SGPT) Alkaline Phosphatase 98 U/L Total Protein 6.5 GM/DL Albumin 2.8 GM/DL Ammonia 132 MCMOL/L ASSESSMENT/PLAN: ugi bleeding secondary esophageal varices-s/p banding -no further bleeding etoh hepatitis liver cirrhosis secondary etoh coagulopathy secondary to etoh liver disease Recommendations clear liquid once able to tolerate po prednisolone 40 mg po daily once able to tolerate po -in between we will give her Solumedrol iv continue iv octreotide and Protonix, antibiotics monitor pt/inr, cbc, cmp closely fu labs if no po intake ok to insert small ngt or Dobbhoff tube if no improvement in her mental status consider ct brain rifaximin 550 mg bid once can take po It was a pleasure seeing Emerita Sharp. Thank you for this consult. Entered by: Tila Daniels MD Feb 02, 2017 18:03
[2017-02-02] MEDS: RIFAXIMIN 550 MG TAB PO SCH (21:00)
[2017-02-03] VITALS (25 sets, daily range): BP systolic 112–162; BP diastolic 79–97; PULSE 60–108; RESP 14–25; TEMP 97.5–98.6; O2SAT 96–99
[2017-02-03] MEDS: LORazepam 2 MG/ML VIAL IV PUSH PRN ×3 (01:03→20:09)
[2017-02-03] MEDS: DEXMEDETOMIDINE INJ 200 MCG in SODIUM CHLORIDE 0.9% INJ 50 ML IV SCH ×2 (01:04→12:18)
[2017-02-03] MEDS: SODIUM CHLOR 0.9% 1000 ML INJ 1,000 ML IV SCH ×2 (01:35→14:06)
[2017-02-03] MEDS: ZIPRASIDONE MESYLATE 20 MG VIAL IM PRN (01:40)
[2017-02-03] MEDS: CHLORHEXIDINE GLUCONATE 2 % 1 PACK (2 CLOTHS) TOP SCH (03:14)
[2017-02-03] MEDS: RESP: ALBUTEROL 2.5 MG/IPRATROPIUM 0.5 MG NEB (SCH) INH ×4 (03:49→21:36)
[2017-02-03] MEDS: LEVOTHYROXINE SODIUM 150 MCG TAB PO SCH (05:58)
[2017-02-03 06:25] LABS: AUTOMATED NEUTROPHIL # 3.9 TH/MM3 (1.8-7.7); BASOPHIL # 0.1 TH/MM3 (0-0.2); BASOPHIL % 1.7 % (0.0-2.0); EOSINOPHIL # 0.1 TH/MM3 (0-0.4); EOSINOPHIL % 1.2 % (0.0-4.0); HEMATOCRIT 28.7 % (35.0-46.0); MEAN CELL VOLUME 91.3 FL (80.0-100.0); MONO % 7.2 % (0.0-8.0); NEUT % 71.9 % (16.0-70.0); PLATELET COUNT 63 TH/MM3 (150-450); RED BLOOD COUNT 3.14 MIL/MM3 (4.00-5.30); RED CELL DISTRIBUTION WIDTH 20.3 % (11.6-17.2); WHITE BLOOD COUNT 5.5 TH/MM3 (4.0-11.0)
[2017-02-03 06:26] LABS: HEMO FLAGS AUTO DIFF
[2017-02-03 06:34] LABS: POTASSIUM 3.5 MEQ/L (3.5-5.1)
[2017-02-03 06:37] LABS: APTT (PATIENT) 28.7 SEC (24.3-30.1); PROTHROMBIN TIME - PATIENT 22.5 SEC (9.8-11.6)
[2017-02-03 06:51] LABS: SCAN/DIFF AUTO DIFF CONFIRMED
[2017-02-03 06:52] LABS: CALCIUM-PROTEIN CORRECTED 7.5 MG/DL (8.5-10.1); MAGNESIUM 2.2 MG/DL (1.5-2.5); TOTAL BILIRUBIN ADULT 6.9 MG/DL (0.2-1.0)
[2017-02-03] MEDS: CHLORHEXIDINE 0.12% (ORAL KIT) 15 ML CUP MT SCH ×2 (08:00→20:00)
[2017-02-03] MEDS: prednisoLONE 10 MG ODT TAB PO SCH (09:00)
[2017-02-03] MEDS: DOCUSATE SODIUM 50 MG/SENNA 8.6 MG TAB PO SCH ×2 (09:45→20:08)
[2017-02-03] MEDS: RIFAXIMIN 550 MG TAB PO SCH ×2 (09:45→20:08)
[2017-02-03] MEDS: chlordiazePOXIDE 25 MG CAP PO SCH ×3 (09:45→17:06)
[2017-02-03] MEDS: ARTIFICIAL TEARS OPTH SOLN 15 ML BTL EACH EYE SCH ×3 (09:53→20:08)
[2017-02-03] MEDS: SODIUM CHLORIDE 0.9% FLUSH 10 ML FLUSH IV FLUSH SCH ×2 (09:54→20:09)
[2017-02-03] MEDS: SODIUM CHLORIDE 0.9% FLUSH 10 ML FLUSH IVF SCH (09:54)
[2017-02-03] MEDS: methylPREDNISolone SOD SUCC 40 MG/1 ML VIAL IV PUSH SCH (09:54)
[2017-02-03] MEDS: OCTREOTIDE INJ 500 MCG in SODIUM CHLORID 0.9% 500 ML INJ 500 ML IV SCH ×2 (09:59→19:45)
--- NOTE | 2017-02-03 10:29 | HHI.GIFU ---
Subjective Remarks patient laying in bed, seem comfortable, still agitated, spoon fed by staff Objective Vitals I&O Vital Signs Date Time Temp Pulse Resp B/P Pulse Ox O2 Delivery O2 Flow Rate FiO2 02/03/17 10:07 99 Nasal Cannula 3.00 02/03/17 07:00 Nasal Cannula 2.00 02/03/17 06:00 70 17 132/89 96 02/03/17 06:00 70 02/03/17 04:00 97.5 96 18 138/93 97 02/03/17 04:00 96 02/03/17 02:00 68 02/03/17 02:00 68 19 124/91 97 02/03/17 00:00 98.6 72 17 112/86 98 02/03/17 00:00 72 02/02/17 22:00 102 23 140/88 96 02/02/17 22:00 102 02/02/17 20:58 95 Nasal Cannula 4.00 02/02/17 20:00 62 02/02/17 20:00 98.5 62 21 134/95 98 02/02/17 19:00 98 Nasal Cannula 2.00 02/02/17 18:00 64 02/02/17 18:00 64 21 145/89 94 02/02/17 17:00 60 19 149/88 02/02/17 17:00 60 02/02/17 16:00 99.5 106 24 137/102 02/02/17 16:00 106 02/02/17 15:53 64 19 133/83 02/02/17 15:00 64 23 02/02/17 14:00 56 18 138/80 02/02/17 14:00 56 02/02/17 13:00 56 19 02/02/17 12:00 99.7 110 33 137/98 92 02/02/17 12:00 124 02/02/17 11:38 56 18 150/79 02/02/17 11:00 58 19 154/88 I/O 02/02/17 02/02/17 02/02/17 02/03/17 02/03/17 02/03/17 07:00 15:00 23:00 07:00 15:00 23:00 Intake Total 1006 ml 2059 ml 1594 ml 1286 ml Output Total 1000 ml 1125 ml 1050 ml 260 ml Balance 6 ml 934 ml 544 ml 1026 ml Intake Oral 30 ml IV Total 976 ml 2059 ml 1594 ml 1286 ml Output Urine Total 1000 ml 1125 ml 1050 ml 260 ml Stool Total 0 ml # Bowel Movements 1 Laboratory Laboratory Tests Test 02/02/17 02/03/17 16:14 06:00 Hemoglobin 9.9 9.7 Hematocrit 30.0 28.7 Phosphorus Level 1.0 1.5 White Blood Count 5.5 Red Blood Count 3.14 Mean Corpuscular Volume 91.3 Mean Corpuscular Hemoglobin 31.0 Mean Corpuscular Hemoglobin 34.0 Concent Red Cell Distribution Width 20.3 Platelet Count 63 Mean Platelet Volume 9.1 Neutrophils (%) (Auto) 71.9 Lymphocytes (%) (Auto) 18.0 Monocytes (%) (Auto) 7.2 Eosinophils (%) (Auto) 1.2 Basophils (%) (Auto) 1.7 Neutrophils # (Auto) 3.9 Lymphocytes # (Auto) 1.0 Monocytes # (Auto) 0.4 Eosinophils # (Auto) 0.1 Basophils # (Auto) 0.1 CBC Comment AUTO DIFF Differential Comment AUTO DIFF CONFIRMED Prothrombin Time 22.5 Prothromb Time International 2.0 Ratio Activated Partial 28.7 Thromboplast Time Fibrinogen 171 Sodium Level 144 Potassium Level 3.5 Chloride Level 111 Carbon Dioxide Level 26.0 Anion Gap 7 Blood Urea Nitrogen 11 Creatinine 0.44 Estimat Glomerular Filtration 161 Rate Random Glucose 116 Lactic Acid Level 0.9 Calcium Level 6.9 Protein Corrected Calcium 7.5 Magnesium Level 2.2 Total Bilirubin 6.9 Aspartate Amino Transf 177 (AST/SGOT) Alanine Aminotransferase 77 (ALT/SGPT) Alkaline Phosphatase 95 Ammonia 75 Total Creatine Kinase 143 Total Protein 5.9 Albumin 2.4 Amylase Level 26 Lipase 146 Physical Exam HEENT: Pupils round and reactive to light; normocephalic; atraumatic; positive jaundice. Throat is clear. NECK: Neck is supple, no JVD, no lymphadenopathy. CHEST: Chest is clear to auscultation and percussion. CARDIAC: Regular rate and rhythm with no murmur gallop or rubs. ABDOMEN: Soft, sever distended with ascites, mild tender; no hepatosplenomegaly ; bowel sounds are present in all four quadrants. EXTREMITIES: No clubbing, cyanosis, or edema. SKIN: Normal; no rash; jaundice. 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 Assessment and Plan Plan ETOH liver Dx, with cirrhosis, S/P banding, sever ascites, may need paracentesis sunday avoid ETOH continue diuretic guarded prognosis Linnea Cruz MD Feb 03, 2017 10:29
--- NOTE | 2017-02-03 11:49 | PD.PROCEDR ---
Procedure Note Procedure Paracentesis note Indication-large volume ascites Description of procedure Informed consent was obtained from and time out performed. Patient appropriately positioned. Left lower quadrant site marked with ultrasound. Chlorhexidine used to prepare the site. Full barrier and sterile precautions used including drape, gown and mask and sterile gloves. Site was anesthetized with 1% lidocaine, and a small skin shannon made with scalpel. Paracentesis Angiocath introduced into the ascites fluid and the needle was removed. Approximately 50 mL fluid collected for further studies. Angiocath was then connected to the Vacutainer using tubing and approximately 2.75L free-flowing biliary tinged fluid removed. IV albumin given during procedure and scheduled for postprocedure. Patient tolerated procedure well. Blood loss was negligible Nichelle Womack MD Feb 03, 2017 11:49
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
[2017-02-03] MEDS: ALBUMIN HUMAN 25% 25 GM/100 ML BAGP IV SCH (12:05)
[2017-02-03] MEDS: PANTOPRAZOLE INJ 80 MG in SODIUM CHLORIDE 0.9% INJ 100 ML IV SCH ×2 (12:17→19:45)
[2017-02-03] MEDS: cefTRIAXone INJ 1,000 MG in SODIUM CHLORIDE 0.9% INJ 100 ML IV SCH (12:48)
[2017-02-03] MEDS ORDERED: CALCIUM GLUCONATE INJ 2 GM in DEXTROSE 5% IN WATER 100ML INJ 100 ML IV ONE ×2 (13:00)
[2017-02-03] MEDS: LACTULOSE SYRUP 20 GM/30 ML CUP PO SCH (14:04)
[2017-02-03 14:11] LABS: PERITONEAL HISTIOCYTES 1 %; PERITONEAL LYMPHS 85 %; PERITONEAL MONOS 4 %; PERITONEAL POLYS(SEGS) 10 %; PERITONEAL WBC 3 /MM3 (0-10)
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
[2017-02-04] VITALS (18 sets, daily range): BP systolic 118–161; BP diastolic 66–96; PULSE 56–90; RESP 18–37; TEMP 98.2–99.4; O2SAT 90–99
[2017-02-04] MEDS: LACTULOSE SYRUP 20 GM/30 ML CUP PO SCH ×3 (00:08→23:50)
[2017-02-04] MEDS: ALBUMIN HUMAN 25% 25 GM/100 ML BAGP IV SCH ×3 (00:08→23:50)
[2017-02-04] MEDS: LORazepam 2 MG/ML VIAL IV PUSH PRN (00:47)
[2017-02-04] MEDS: SODIUM CHLOR 0.9% 1000 ML INJ 1,000 ML IV SCH ×2 (00:47→13:20)
[2017-02-04] MEDS: OCTREOTIDE INJ 500 MCG in SODIUM CHLORID 0.9% 500 ML INJ 500 ML IV SCH ×2 (03:30→16:25)
[2017-02-04] MEDS: PANTOPRAZOLE INJ 80 MG in SODIUM CHLORIDE 0.9% INJ 100 ML IV SCH ×3 (03:30→23:49)
[2017-02-04] MEDS: CHLORHEXIDINE GLUCONATE 2 % 1 PACK (2 CLOTHS) TOP SCH (04:00)
[2017-02-04] MEDS: RESP: ALBUTEROL 2.5 MG/IPRATROPIUM 0.5 MG NEB (SCH) INH ×3 (04:14→15:26)
[2017-02-04] MEDS: LEVOTHYROXINE SODIUM 150 MCG TAB PO SCH (05:24)
[2017-02-04 06:54] LABS: AUTOMATED NEUTROPHIL # 2.6 TH/MM3 (1.8-7.7); BASOPHIL # 0.1 TH/MM3 (0-0.2); BASOPHIL % 1.5 % (0.0-2.0); EOSINOPHIL % 0.3 % (0.0-4.0); HEMATOCRIT 26.9 % (35.0-46.0); LYMPHOCYTE # 0.9 TH/MM3 (1.0-4.8); MEAN CELL VOLUME 91.2 FL (80.0-100.0); MEAN CORPUSCULAR HEMOGLOBIN 30.8 PG (27.0-34.0); MEAN CORPUSCULAR HGB CONC 33.7 % (32.0-36.0); MONO % 12.4 % (0.0-8.0); NEUT % 63.8 % (16.0-70.0); PLATELET COUNT 78 TH/MM3 (150-450); RED BLOOD COUNT 2.95 MIL/MM3 (4.00-5.30); RED CELL DISTRIBUTION WIDTH 20.4 % (11.6-17.2); WHITE BLOOD COUNT 4.1 TH/MM3 (4.0-11.0)
[2017-02-04 06:56] LABS: CHLORIDE 108 MEQ/L (98-107); HEMO FLAGS AUTO DIFF; POTASSIUM 3.1 MEQ/L (3.5-5.1); SODIUM (NA) 144 MEQ/L (136-145)
[2017-02-04 06:57] LABS: INTERNATIONAL NORMALIZED RATIO 1.8 RATIO; PROTHROMBIN TIME - PATIENT 20.3 SEC (9.8-11.6)
[2017-02-04 07:12] LABS: ALKALINE PHOSPHATASE 89 U/L (45-117); ALT (GPT) 72 U/L (10-53); ANION GAP 9 MEQ/L (5-15); AST (GOT) 127 U/L (15-37); BICARBONATE 26.8 MEQ/L (21.0-32.0); BLOOD UREA NITROGEN 6 MG/DL (7-18); GLOMERULAR FILTRATION RATE 175 ML/MIN (>89); TOTAL BILIRUBIN ADULT 6.6 MG/DL (0.2-1.0)
[2017-02-04 07:29] LABS: SCAN/DIFF AUTO DIFF CONFIRMED
[2017-02-04] MEDS: CHLORHEXIDINE 0.12% (ORAL KIT) 15 ML CUP MT SCH ×2 (08:00→20:00)
[2017-02-04] MEDS: DOCUSATE SODIUM 50 MG/SENNA 8.6 MG TAB PO SCH ×2 (09:00→20:08)
[2017-02-04] MEDS: ARTIFICIAL TEARS OPTH SOLN 15 ML BTL EACH EYE SCH ×3 (09:00→18:00)
[2017-02-04] MEDS: prednisoLONE 10 MG ODT TAB PO SCH (09:00)
[2017-02-04] MEDS: methylPREDNISolone SOD SUCC 40 MG/1 ML VIAL IV PUSH SCH (09:00)
[2017-02-04] MEDS: RIFAXIMIN 550 MG TAB PO SCH ×2 (10:06→20:08)
[2017-02-04] MEDS: SODIUM CHLORIDE 0.9% FLUSH 10 ML FLUSH IV FLUSH SCH ×2 (10:07→20:08)
[2017-02-04] MEDS: chlordiazePOXIDE 25 MG CAP PO SCH ×3 (10:07→18:18)
[2017-02-04] MEDS: SODIUM CHLORIDE 0.9% FLUSH 10 ML FLUSH IVF SCH (10:08)
[2017-02-04] MEDS: cefTRIAXone INJ 1,000 MG in SODIUM CHLORIDE 0.9% INJ 100 ML IV SCH (12:41)
--- NOTE | 2017-02-04 13:19 | HHI.PR ---
Subjective Remarks denies nausea and vomiting denies abdominal pain RN shows a container with bloody stool vital signs stable Denies hallucinations or tremors. Objective Vitals Vital Signs Date Time Temp Pulse Resp B/P Pulse Ox O2 Delivery O2 Flow Rate FiO2 02/04/17 10:14 97 21 02/04/17 08:00 98.4 68 20 119/84 94 02/04/17 08:00 68 02/04/17 07:00 96 Nasal Cannula 2.00 02/04/17 06:00 64 02/04/17 06:00 64 26 134/90 98 02/04/17 04:00 60 02/04/17 04:00 98.8 60 25 118/76 96 02/04/17 02:00 56 02/04/17 02:00 56 18 136/81 97 02/04/17 00:00 70 02/04/17 00:00 98.2 70 29 121/66 95 02/03/17 22:00 92 23 136/84 98 02/03/17 22:00 92 02/03/17 21:35 99 Nasal Cannula 2.00 02/03/17 20:00 74 02/03/17 20:00 98.6 74 18 133/79 99 02/03/17 19:00 97 Nasal Cannula 2.00 02/03/17 18:00 78 20 142/97 99 02/03/17 18:00 84 02/03/17 17:58 82 23 132/87 98 02/03/17 17:50 76 17 98 02/03/17 17:35 98.5 92 23 138/84 97 02/03/17 17:20 98.4 96 25 97 02/03/17 17:05 104 22 96 02/03/17 16:58 108 20 126/82 96 02/03/17 16:05 98.5 68 25 146/94 98 02/03/17 16:00 74 02/03/17 15:59 74 18 141/89 98 02/03/17 15:50 98.5 66 16 137/88 97 02/03/17 14:00 76 02/03/17 14:00 76 16 162/89 97 I/O 02/03/17 02/03/17 02/03/17 02/04/17 02/04/17 02/04/17 07:00 15:00 23:00 07:00 15:00 23:00 Intake Total 1286 ml 1361 ml 1805 ml 1150 ml Output Total 260 ml 1075 ml 3450 ml 1000 ml 1750 ml Balance 1026 ml 286 ml -1645 ml 150 ml -1750 ml Intake Oral 500 ml IV Total 1286 ml 1361 ml 1305 ml 1150 ml Output Urine Total 260 ml 1075 ml 3450 ml 1000 ml 1750 ml # Bowel Movements 4 2 Result Diagram: 02/04/17 0600 02/04/17 0600 Imaging Last Impressions Chest X-Ray 02/01/17 0000 Signed Impressions: Service Date/Time: January 05:49 - CONCLUSION: No significant change. Bibasilar and left perihilar consolidation again noted. Vu Lozano MD Abdomen Ultrasound 01/31/17 0000 Signed Impressions: Service Date/Time: Tuesday, January 31, 2017 16:19 - CONCLUSION: 1. Diffusely abnormal liver likely related to cirrhosis. There is ascites. 2. Splenomegaly. This can be secondary to portal hypertension. Vu Le MD Objective Remarks GENERAL: this is an obese female, not in distress. No tremors. SKIN: Warm and dry. HEAD: Normocephalic. EYES: No scleral icterus. No injection or drainage. NECK: Supple, trachea midline. No JVD or lymphadenopathy. CARDIOVASCULAR: Regular rate and rhythm without murmurs, gallops, or rubs. RESPIRATORY: Breath sounds equal bilaterally. No accessory muscle use. GASTROINTESTINAL: Abdomen soft, non-tender, distended. Positive ascites MUSCULOSKELETAL: No cyanosis, or edema. BACK: Nontender without obvious deformity. No CVA tenderness. Medications and IVs Current Medications Medications (Trade) Dose Ordered Sig/Jazmine Route Start Time Stop Time Status Last Admin Octreotide Acetate 500 mcg/ Sodium Chloride 500.5 ml @ 50 mls/hr Q10H IV 01/31/17 09:30 02/04/17 03:30 (Protonix Inj/NS Inj) 100 ml @ 10 mls/hr Q10H IV 01/31/17 09:30 02/04/17 03:30 (Restoril) 15 mg HS PRN PO 01/31/17 11:45 (Narcan Inj) 0.4 mg UNSCH PRN IV 01/31/17 11:45 (Romazicon Inj) 0.2 mg Q1M PRN IV PUSH 01/31/17 11:45 (Ativan) 1 mg Q4H PRN PO 01/31/17 11:45 (Ativan Inj) 1 mg Q4H PRN IV PUSH 01/31/17 11:45 02/03/17 20:09 (Ativan) 2 mg Q2H PRN PO 01/31/17 11:45 (Ativan Inj) 2 mg Q2H PRN IV PUSH 01/31/17 11:45 02/04/17 00:47 (Ativan Inj) 2 mg Q1H PRN IV PUSH 01/31/17 11:45 02/02/17 14:49 Lorazepam 2 mg 2 mg Q15M PRN IV PUSH 01/31/17 11:45 02/02/17 12:19 (Rocephin Inj/NS Inj) 100 ml @ 200 mls/hr Q24H IV 01/31/17 13:00 02/04/17 12:41 Chlorhexidine Gluconate 15 ml 15 ml BID@08,20 MT 01/31/17 20:00 02/02/17 20:00 (NS 1000 ml Inj) 1,000 ml @ 84 mls/hr [id number] IV 01/31/17 14:00 02/04/17 13:20 (NS Flush) 2 ml UNSCH PRN IV FLUSH 01/31/17 13:45 (NS Flush) 2 ml BID IV FLUSH 01/31/17 21:00 02/04/17 10:07 (Tears Naturale Opth Soln) 1 drop TID EACH EYE 01/31/17 18:00 02/03/17 20:08 (Zofran Inj) 4 mg Q6H PRN IV 01/31/17 13:45 02/01/17 20:25 Miscellaneous Information 1 Q361D XX 01/31/17 13:45 01/31/17 14:00 (Chlorhexidine 2% Cloth) 3 pack Taper DAILY@04 TOP 02/01/17 04:00 01/28/18 03:59 02/04/17 04:00 (Chlorhexidine 2% Cloth) 3 pack UNSCH PRN TOP 01/31/17 13:45 (Jolene-Colace) 1 tab BID PO 01/31/17 21:00 02/03/17 20:08 (Milk Of Magnesia Liq) 30 ml Q12H PRN PO 01/31/17 13:45 (Senokot) 17.2 mg Q12H PRN PO 01/31/17 13:45 (Dulcolax Supp) 10 mg DAILY PRN RECTAL 01/31/17 13:45 (Lactulose Liq) 30 ml DAILY PRN PO 01/31/17 13:45 Terbutaline Sulfate 1 mg 1 mg UNSCH PRN SQ 01/31/17 15:45 (Neosynephrine Inj/D5W 500 ml Inj) 500 ml @ 0 mls/hr TITRATE IV 01/31/17 16:00 (NS Flush) DAILY IVF 01/31/17 16:15 02/04/17 10:08 (NS Flush) UNSCH PRN IVF 01/31/17 16:15 (Orapred Odt) 40 mg DAILY PO 02/02/17 09:00 02/04/17 09:00 (Librium) 25 mg TID PO 02/02/17 09:00 02/04/17 12:46 (Geodon Inj) 10 mg Q12H PRN IM 02/02/17 08:30 02/05/17 08:29 02/03/17 01:40 Levothyroxine Sodium 150 mcg 150 mcg DAILY@0600 PO 02/03/17 06:00 02/04/17 05:24 Potassium Chloride 100 ml @ 50 mls/hr Q2H PRN IV 02/02/17 09:00 (KCl 20 Meq Premix Inj) 100 ml @ 50 mls/hr Q2H PRN IV 02/02/17 09:00 Potassium Bicarb/ Potassium Chloride 50 meq 50 meq UNSCH PRN PO 02/02/17 09:00 Potassium Chloride 100 ml @ 25 mls/hr UNSCH PRN IV 02/02/17 09:00 Potassium Chloride 100 ml @ 50 mls/hr Q2H PRN IV 02/02/17 09:00 (Magnesium Sulfate Inj/NS Inj) 100 ml @ 50 mls/hr UNSCH PRN IV 02/02/17 09:00 Magnesium Oxide 800 mg 800 mg UNSCH PRN PO 02/02/17 09:00 (Magnesium Sulfate Inj/NS Inj) 100 ml @ 50 mls/hr UNSCH PRN IV 02/02/17 09:00 Potassium Phosphate 2000 mg 2,000 mg Q4H PRN PO 02/02/17 09:00 (Sodium Phosphate Inj/NS 250 ml Inj) 250 ml @ 42 mls/hr UNSCH PRN IV 02/02/17 09:00 02/03/17 12:13 Potassium Phosphate 2000 mg 2,000 mg UNSCH PRN PO/TUBE 02/02/17 09:00 (Potassium Phosphate Inj/NS 250 ml Inj) 260 ml @ 42 mls/hr UNSCH PRN IV 02/02/17 09:00 02/02/17 17:30 (SoluMEDROL INJ) 40 mg DAILY IV PUSH 02/03/17 09:00 02/03/17 09:54 (Xifaxan) 550 mg BID PO 02/02/17 21:00 02/04/17 10:06 (Albumin 25% Inj) 25 gm Q12H IV 02/03/17 12:00 02/05/17 11:59 02/04/17 12:07 (Lactulose Liq) 30 ml Q12H PO 02/03/17 13:00 02/04/17 12:46 Urinary Catheter: Yes Assessment to: Remove Vascular Central Line Catheter: Yes Assessment to: Continue Date of Insertion: Jan 31, 2017 Line: Central Venous Catheter Side: Left Location: Internal, Jugular Reason for Continuation Possible need of blood transfusion A/P Problem List: (1) Upper GI bleed ICD Code: K92.2 Status: Acute (2) Hematemesis ICD Code: K92.0 Status: Acute (3) Coagulopathy ICD Code: D68.9 Status: Acute (4) Hypotension due to blood loss ICD Code: I95.89 Status: Acute (5) Hepatic encephalopathy ICD Code: K72.90 Status: Acute (6) Ascites ICD Code: R18.8 Status: Acute (7) Alcohol dependence ICD Code: F10.20 Status: Acute (8) Alcoholic liver disease ICD Code: K70.9 Status: Acute (9) Hypothyroidism ICD Code: E03.9 Status: Acute (10) Transaminitis ICD Code: R74.0 Status: Acute Assessment and Plan Neuro/Psych: Alcohol withdrawal Hepatic encephalopathy Anxiety Chronic benzodiazepine use Currently on Precedex drip -wean to DC Librium 25 mg 3 times a day ordered CIWA protocol initiated ? home dose Xanax 0.25 mg every 8 hours when necessary Vitamin bag daily 3 days including thiamine, folate and multivitamin be continued Monitor for DTs EtOH level 132 on admission, today 75. 02/04 off Precedex drip, has not required IV Ativan since 02/03. Had long conversation regarding alcohol abuse and cessation. CV: History of hypertension LA Currently on normal saline at 84 cc an hour Not requiring vasopressors and/or antihypertensives Serial lactate until cleared. 0.9 02/04 blood pressure stable. Resp: Acute respiratory failure, now extubated 02/01 Nasal cannula to maintain saturations greater than or equal to 92%. Currently in 2L Incentive spirometry while awake As needed albuterol therapy for dyspnea At risk for aspiration GI: Upper GI bleed Status post EGD with esophageal varices 3/portal gastropathy Ascites Alcoholic liver disease Elevated bilirubin Gastroesophageal reflux disease Hepatosplenomegaly Status post EGD 01/[address] Murillo revealed esophageal varices with banding 3/ portal gastropathy Continue on Protonix drip at 8 mg an hour and octreotide drip at 50 mg an hour for gastroenterology. Serial hemoglobins remains stable. Paracentesis performed 02/03/17 with 2.75 L of bile tinged ascites fluid removed , fluid studies ordered to rule out SBP Abdominal ultrasound 01.31 revealed hepatosplenomegaly, diffusely enlarged liver likely secondary to alcohol cirrhosis and abdominal ascites Hepatitis panel ordered Meld score is 19. [place] alcoholic hepatitis score is 7. [place] discriminant function for alcohol hepatitis is 49 today. Scores of 32 and above can reveal poor prognosis and they be helped by steroids. Received 125 mg Solu-Medrol yesterday and currently at prednisone 40 mg by mouth daily. 02/04 patient still having lower GI bleed with bloody stools. Monitor CBC which has been slowly trending down and 11 is 9.1 today. Will continue to monitor H& H every 6 hours and transfuse as needed for hemoglobin less than 8 if active bleeding protocol hemoglobin of more than 9. Continue Rocephin for prophylaxis. : Flores catheter will be placed for accurate I's and O's in a critically ill patient Endo: Hypothyroidism Hyperglycemia of critical illness/stress Continue Levoxyl home doses 150 mcg daily according to old records/from 2014 admission. Medicine reconciliation still not completed after 48 hours inpatient TSH - 1.65 Sliding scale insulin if indicated to maintain euglycemia Renal: Monitor urine output Accurate I's and O's Follow BMP in a.m. Heme: Coagulopathy - secondary to liver disease Thrombocytopenia Acute posthem anemia Status post blood platelets and cryoprecipitate Transfuse as clinically indicated 02/04 INR is elevated at 1.8. Will transfuse 2 units of fresh frozen plasma given that the patient has bloody stools, will also administer vitamin K. ID: Currently on Rocephin 1 g IV every 24 hours in setting of upper GI bleed day #5 FEN: Hypocalcemia Hypophosphatemia Hypokalemia 2 g calcium gluconate IV 1 now ICU electrolyte protocol initiated Replace electrolytes as clinically indicated 02/04 potassium 3.1 today. Will replete IV and continue to monitor BMP. MSK: 02/04 PT evaluate and treat Access -Left IJ CVL day #4 placed 01/31. Continue to keep axis with left IJ given the possible need of blood transfusions. Prophylaxis - GI - Protonix/octreotide drips - DVT - SCD/pharmacological prophylaxis contraindicated with active hemorrhage Discharge Planning Continue to monitor in the medical floor. Problem Qualifiers (1) Hematemesis: Qualified Code: K92.0 - Hematemesis with nausea Rob Curtis MD Feb 04, 2017 13:19
[2017-02-04] MEDS ORDERED: POTASSIUM CHLORIDE 10 MEQ CONTROLLED RELEASE TAB PO ONE (14:00)
[2017-02-04] MEDS ORDERED: ACETAMINOPHEN 325 MG TAB PO PRN (15:30)
[2017-02-04] MEDS ORDERED: diphenhydrAMINE HCL 25 MG CAP PO PRN (15:30)
[2017-02-04] MEDS ORDERED: SODIUM CHLOR 0.9% 250 ML INJ 250 ML IV ONE (15:30)
[2017-02-04 15:49] LABS: HEMATOCRIT 30.2 % (35.0-46.0); MEAN CELL VOLUME 91.7 FL (80.0-100.0); MEAN CORPUSCULAR HEMOGLOBIN 30.5 PG (27.0-34.0); MEAN CORPUSCULAR HGB CONC 33.2 % (32.0-36.0); PLATELET COUNT 93 TH/MM3 (150-450); RED BLOOD COUNT 3.29 MIL/MM3 (4.00-5.30); RED CELL DISTRIBUTION WIDTH 20.8 % (11.6-17.2); WHITE BLOOD COUNT 4.6 TH/MM3 (4.0-11.0)
[2017-02-04 15:51] LABS: REVIEW FLAG FINAL
--- NOTE | 2017-02-04 16:48 | HHI.GIFU ---
Subjective Remarks Lying in bed in no apparent distress. States she is feeling better. RN reports patient has had dark watery stool today. No nausea or vomiting. Objective Vitals I&O Vital Signs Date Time Temp Pulse Resp B/P Pulse Ox O2 Delivery O2 Flow Rate FiO2 02/04/17 16:00 84 02/04/17 16:00 98.5 84 25 148/91 02/04/17 12:00 99.0 90 24 137/85 90 02/04/17 12:00 90 02/04/17 10:14 97 21 02/04/17 08:00 98.4 68 20 119/84 94 02/04/17 08:00 68 02/04/17 07:00 96 Nasal Cannula 2.00 02/04/17 06:00 64 02/04/17 06:00 64 26 134/90 98 02/04/17 04:00 60 02/04/17 04:00 98.8 60 25 118/76 96 02/04/17 02:00 56 02/04/17 02:00 56 18 136/81 97 02/04/17 00:00 70 02/04/17 00:00 98.2 70 29 121/66 95 02/03/17 22:00 92 23 136/84 98 02/03/17 22:00 92 02/03/17 21:35 99 Nasal Cannula 2.00 02/03/17 20:00 74 02/03/17 20:00 98.6 74 18 133/79 99 02/03/17 19:00 97 Nasal Cannula 2.00 02/03/17 18:00 78 20 142/97 99 02/03/17 18:00 84 02/03/17 17:58 82 23 132/87 98 02/03/17 17:50 76 17 98 02/03/17 17:35 98.5 92 23 138/84 97 02/03/17 17:20 98.4 96 25 97 02/03/17 17:05 104 22 96 02/03/17 16:58 108 20 126/82 96 I/O 02/03/17 02/03/17 02/03/17 02/04/17 02/04/17 02/04/17 07:00 15:00 23:00 07:00 15:00 23:00 Intake Total 1286 ml 1361 ml 1805 ml 1150 ml Output Total 260 ml 1075 ml 3450 ml 1000 ml 2350 ml Balance 1026 ml 286 ml -1645 ml 150 ml -2350 ml Intake Oral 500 ml IV Total 1286 ml 1361 ml 1305 ml 1150 ml Output Urine Total 260 ml 1075 ml 3450 ml 1000 ml 2350 ml # Bowel Movements 4 2 Laboratory Laboratory Tests Test 02/04/17 02/04/17 02/04/17 06:00 15:40 16:06 White Blood Count 4.1 4.6 Red Blood Count 2.95 3.29 Hemoglobin 9.1 10.0 Hematocrit 26.9 30.2 Mean Corpuscular Volume 91.2 91.7 Mean Corpuscular Hemoglobin 30.8 30.5 Mean Corpuscular Hemoglobin 33.7 33.2 Concent Red Cell Distribution Width 20.4 20.8 Platelet Count 78 93 Mean Platelet Volume 9.1 8.7 Neutrophils (%) (Auto) 63.8 Lymphocytes (%) (Auto) 22.0 Monocytes (%) (Auto) 12.4 Eosinophils (%) (Auto) 0.3 Basophils (%) (Auto) 1.5 Neutrophils # (Auto) 2.6 Lymphocytes # (Auto) 0.9 Monocytes # (Auto) 0.5 Eosinophils # (Auto) 0.0 Basophils # (Auto) 0.1 CBC Comment AUTO DIFF Differential Comment AUTO DIFF CONFIRMED Prothrombin Time 20.3 Prothromb Time International 1.8 Ratio Sodium Level 144 Potassium Level 3.1 Chloride Level 108 Carbon Dioxide Level 26.8 Anion Gap 9 Blood Urea Nitrogen 6 Creatinine 0.41 Estimat Glomerular Filtration 175 Rate Random Glucose 107 Calcium Level 8.0 Total Bilirubin 6.6 Aspartate Amino Transf 127 (AST/SGOT) Alanine Aminotransferase 72 (ALT/SGPT) Alkaline Phosphatase 89 Total Protein 6.2 Albumin 3.0 Blood Bank Comment Date/Time Procedure Status Source Growth 02/04/17 10:20 Stool Occult Blood ([place]) Received Stool Stool Pending 02/03/17 11:30 Gram Stain - Final Resulted Fluid Peritoneal Fluid 02/03/17 11:30 Body Fluid Culture - Preliminary Resulted Fluid Peritoneal Fluid NO GROWTH IN 24 HOURS. Imaging Last Impressions Chest X-Ray 02/01/17 0000 Signed Impressions: Service Date/Time: January 05:49 - CONCLUSION: No significant change. Bibasilar and left perihilar consolidation again noted. Vu Lozano MD Abdomen Ultrasound 01/31/17 0000 Signed Impressions: Service Date/Time: Tuesday, January 31, 2017 16:19 - CONCLUSION: 1. Diffusely abnormal liver likely related to cirrhosis. There is ascites. 2. Splenomegaly. This can be secondary to portal hypertension. Vu Le MD Physical Exam HEENT: PERRLA; normocephalic; atraumatic; positive jaundice. NECK: Neck is supple, no JVD, no lymphadenopathy. CHEST: CTA CARDIAC: RRR. ABDOMEN: Soft, distended with ascites, nontender; no hepatosplenomegaly; bowel sounds x 4 quadrants EXTREMITIES: No clubbing, cyanosis, or edema. SKIN: Normal; no rash; jaundice. 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 Assessment and Plan Plan ASSESSMENT: ETOH liver Dx, with cirrhosis, S/P EGD with banding (01/31) by Dr. Murillo-- Esophageal varices with banding x 3, portal gastropathy. Paracentesis (02/03), 2.75 L of bile tinged ascites fluid removed, peritoneal fluid studies pending. Hepatitis panel negative. Abdomen Ultrasound 01/31/17--1. Diffusely abnormal liver likely related to cirrhosis. There is ascites. 2. Splenomegaly. This can be secondary to portal hypertension. Dark loose stool. Hemoccult ordered, pending. 06/11.2 PLAN: - Continue Protonix/Octreotide drip - Monitor HH, transfuse as necessary - Await Hemoccult results - Order stool studies - Paracentesis as needed - Avoid ETOH - Continue diuretic - Guarded prognosis - Further recommendations to follow based on results of above. Patient seen and examined by Dr. Cruz and myself and this note is written on his behalf. Citlali Hawk Feb 04, 2017 16:48
[2017-02-04] MEDS: PHYTONADIONE 10 MG/ML VIAL SQ SCH (17:24)
[2017-02-04 19:03] LABS: C. DIFF EPI 027 PRESUMPTIVE NEGATIVE (NEGATIVE); C. DIFF TOXIN PCR NEGATIVE (NEGATIVE)
[2017-02-04 21:55] LABS: HEMATOCRIT 27.5 % (35.0-46.0)
[2017-02-04 21:58] LABS: REVIEW FLAG FINAL
[2017-02-05] VITALS (18 sets, daily range): BP systolic 125–154; BP diastolic 82–106; PULSE 60–96; RESP 18–35; TEMP 98.4–98.9; O2SAT 92–99
[2017-02-05] MEDS: OCTREOTIDE INJ 500 MCG in SODIUM CHLORID 0.9% 500 ML INJ 500 ML IV SCH ×3 (02:59→15:16)
[2017-02-05] MEDS: SODIUM CHLOR 0.9% 1000 ML INJ 1,000 ML IV SCH ×2 (02:59→13:10)
[2017-02-05] MEDS: CHLORHEXIDINE GLUCONATE 2 % 1 PACK (2 CLOTHS) TOP SCH (03:00)
[2017-02-05 03:29] LABS: HEMATOCRIT 27.6 % (35.0-46.0)
[2017-02-05 04:23] LABS: REVIEW FLAG FINAL
[2017-02-05] MEDS: LEVOTHYROXINE SODIUM 150 MCG TAB PO SCH (05:13)
[2017-02-05] MEDS: CHLORHEXIDINE 0.12% (ORAL KIT) 15 ML CUP MT SCH ×2 (08:00→20:00)
[2017-02-05] MEDS: chlordiazePOXIDE 25 MG CAP PO SCH ×3 (08:32→17:55)
[2017-02-05] MEDS: SODIUM CHLORIDE 0.9% FLUSH 10 ML FLUSH IV FLUSH SCH ×2 (08:32→21:39)
[2017-02-05] MEDS: prednisoLONE 10 MG ODT TAB PO SCH (08:32)
[2017-02-05] MEDS: PHYTONADIONE 10 MG/ML VIAL SQ SCH (08:32)
[2017-02-05] MEDS: ARTIFICIAL TEARS OPTH SOLN 15 ML BTL EACH EYE SCH ×3 (08:33→17:52)
[2017-02-05] MEDS: SODIUM CHLORIDE 0.9% FLUSH 10 ML FLUSH IVF SCH (08:33)
[2017-02-05] MEDS: DOCUSATE SODIUM 50 MG/SENNA 8.6 MG TAB PO SCH ×2 (08:33→21:00)
[2017-02-05] MEDS: methylPREDNISolone SOD SUCC 40 MG/1 ML VIAL IV PUSH SCH (08:33)
[2017-02-05] MEDS: RIFAXIMIN 550 MG TAB PO SCH ×2 (08:34→21:39)
[2017-02-05 09:19] LABS: AUTOMATED NEUTROPHIL # 4.1 TH/MM3 (1.8-7.7); BASOPHIL # 0.1 TH/MM3 (0-0.2); BASOPHIL % 1.9 % (0.0-2.0); EOSINOPHIL # 0.1 TH/MM3 (0-0.4); EOSINOPHIL % 1.6 % (0.0-4.0); HEMATOCRIT 31.4 % (35.0-46.0); LYMPH % 20.6 % (9.0-44.0); LYMPHOCYTE # 1.4 TH/MM3 (1.0-4.8); MEAN CELL VOLUME 93.3 FL (80.0-100.0); MEAN CORPUSCULAR HEMOGLOBIN 30.2 PG (27.0-34.0); MEAN CORPUSCULAR HGB CONC 32.4 % (32.0-36.0); MONO % 14.8 % (0.0-8.0); NEUT % 61.1 % (16.0-70.0); PLATELET COUNT 86 TH/MM3 (150-450); RED BLOOD COUNT 3.37 MIL/MM3 (4.00-5.30); RED CELL DISTRIBUTION WIDTH 21.8 % (11.6-17.2); WHITE BLOOD COUNT 6.7 TH/MM3 (4.0-11.0)
--- NOTE | 2017-02-05 09:27 | PD.PN.STU ---
Subjective Remarks Patient feeling much better today, sitting up in bedside chair eating breakfast She is still having frequent loose stools but they are not dark like they were yesterday, they are light brown Denies abdominal pain, nausea, vomiting, chest pain, SOB Objective Vitals Vital Signs Date Time Temp Pulse Resp B/P Pulse Ox O2 Delivery O2 Flow Rate FiO2 02/05/17 04:01 62 02/05/17 04:01 98.9 62 32 127/89 92 02/05/17 03:01 60 31 136/91 92 02/05/17 03:01 60 02/05/17 00:00 62 25 133/82 94 02/05/17 00:00 62 02/04/17 23:00 60 18 119/72 94 02/04/17 23:00 60 02/04/17 22:00 99.4 64 23 123/79 96 02/04/17 22:00 64 02/04/17 22:00 99.4 64 23 123/79 96 02/04/17 21:00 68 26 142/91 94 02/04/17 21:00 68 02/04/17 20:58 96 21 02/04/17 20:00 99.0 65 32 128/81 97 02/04/17 20:00 99.0 75 20 128/81 98 02/04/17 20:00 65 02/04/17 20:00 97 Room Air 02/04/17 19:51 68 37 140/81 99 02/04/17 19:51 68 02/04/17 19:30 76 02/04/17 19:30 76 24 161/91 97 02/04/17 17:45 99.2 78 22 140/88 02/04/17 17:30 99.1 72 23 149/82 02/04/17 17:00 72 24 144/96 02/04/17 16:59 20 02/04/17 16:00 84 02/04/17 16:00 98.5 84 25 148/91 02/04/17 12:00 99.0 90 24 137/85 90 02/04/17 12:00 90 02/04/17 10:14 97 21 I/O 02/04/17 02/04/17 02/04/17 02/05/17 02/05/17 02/05/17 07:00 15:00 23:00 07:00 15:00 23:00 Intake Total 1150 ml 4651 ml 1422 ml Output Total 1000 ml 2350 ml 1000 ml 3200 ml Balance 150 ml -2350 ml 3651 ml -1778 ml Intake Oral 1400 ml 480 ml IV Total 1150 ml 2594 ml 942 ml FFP 657 ml Output Urine Total 1000 ml 2350 ml 1000 ml 3200 ml # Voids 6 6 # Bowel Movements 4 2 9 Result Diagram: 02/05/17 0315 02/04/17 0600 Objective Remarks GENERAL: pleasant well appearing female in no acute distress SKIN: Warm and dry. Not jaundiced. HEAD: Normocephalic. EYES: No scleral icterus. No injection or drainage. NECK: Supple, trachea midline. No JVD or lymphadenopathy. CARDIOVASCULAR: Regular rate and rhythm without murmurs, gallops, or rubs. RESPIRATORY: Breath sounds equal bilaterally. No accessory muscle use. GASTROINTESTINAL: Abdomen soft, non-tender. Moderately distended. A/P Assessment and Plan Alcohol withdrawal Hepatic encephalopathy Anxiety Chronic benzodiazepine use Currently on Precedex drip -wean to DC Librium 25 mg 3 times a day ordered CIWA protocol initiated ? home dose Xanax 0.25 mg every 8 hours when necessary Vitamin bag daily 3 days including thiamine, folate and multivitamin be continued Monitor for DTs EtOH level 132 on admission, today 75. 02/04 off Precedex drip, has not required IV Ativan since 02/03. Had long conversation regarding alcohol abuse and cessation. CV: History of hypertension LA Currently on normal saline at 84 cc an hour Not requiring vasopressors and/or antihypertensives Serial lactate until cleared. 0.9 02/04 blood pressure stable. Resp: Acute respiratory failure, now extubated 02/01 Nasal cannula to maintain saturations greater than or equal to 92%. Currently in 2L Incentive spirometry while awake As needed albuterol therapy for dyspnea At risk for aspiration GI: Upper GI bleed Status post EGD with esophageal varices 3/portal gastropathy Ascites Alcoholic liver disease Elevated bilirubin Gastroesophageal reflux disease Hepatosplenomegaly Status post EGD 01/[address] Murillo revealed esophageal varices with banding 3/ portal gastropathy Continue on Protonix drip at 8 mg an hour and octreotide drip at 50 mg an hour for gastroenterology. Serial hemoglobins remains stable. Paracentesis performed 02/03/17 with 2.75 L of bile tinged ascites fluid removed , fluid studies ordered to rule out SBP Abdominal ultrasound 01.31 revealed hepatosplenomegaly, diffusely enlarged liver likely secondary to alcohol cirrhosis and abdominal ascites Hepatitis panel ordered Meld score is 19. [place] alcoholic hepatitis score is 7. [facility] discriminant function for alcohol hepatitis is 49 today. Scores of 32 and above can reveal poor prognosis and they be helped by steroids. Received 125 mg Solu-Medrol yesterday and currently at prednisone 40 mg by mouth daily. 02/04 patient still having lower GI bleed with bloody stools. Monitor CBC which has been slowly trending down and 11 is 9.1 today. Will continue to monitor H& H every 6 hours and transfuse as needed for hemoglobin less than 8 if active bleeding protocol hemoglobin of more than 9. Continue Rocephin for prophylaxis. 02/05 Hemoglobin stable at 10, no further melanotic stools. Will start the patient on oral Lasix 40 mg po daily and Spironolactone 100 mg po daily. : Flores catheter will be placed for accurate I's and O's in a critically ill patient Endo: Hypothyroidism Hyperglycemia of critical illness/stress Continue Levoxyl home doses 150 mcg daily according to old records/from 2013 admission. Medicine reconciliation still not completed after 48 hours inpatient TSH - 1.65 Sliding scale insulin if indicated to maintain euglycemia Renal: Monitor urine output Accurate I's and O's Follow BMP in a.m. Heme: Coagulopathy - secondary to liver disease Thrombocytopenia Acute posthem anemia Status post blood platelets and cryoprecipitate Transfuse as clinically indicated 02/04 INR is elevated at 1.8. Will transfuse 2 units of fresh frozen plasma given that the patient has bloody stools, will also administer vitamin K. 02/05 INR elevated at 1.8. Sp transfusion of 2 units of fresh frozen plasma, melena has subsided. Will give ID: Currently on Rocephin 1 g IV every 24 hours in setting of upper GI bleed day #5 FEN: Hypocalcemia Hypophosphatemia Hypokalemia 2 g calcium gluconate IV 1 now ICU electrolyte protocol initiated Replace electrolytes as clinically indicated 02/04 potassium 3.1 today. Will replete IV and continue to monitor BMP. 02/05 K still ow at 3.2. Replace orally and continue to monitor BMP. MSK: 02/04 Appreciate PT recommendations. Discussed case with physical therapist and decided most likely the patient will need short-term home with home health physical therapy. Access -Left IJ CVL day #4 placed 01/31. 02/05 DC Left IJ Prophylaxis - GI - Protonix/octreotide drips - DVT - SCD/pharmacological prophylaxis contraindicated with active hemorrhage Discharge Planning Possible Dc in am. Marilia Lucero M3 Feb 05, 2017 09:27
[2017-02-05 09:30] LABS: HEMO FLAGS AUTO DIFF
[2017-02-05] MEDS: PANTOPRAZOLE INJ 80 MG in SODIUM CHLORIDE 0.9% INJ 100 ML IV SCH ×2 (09:30→19:30)
[2017-02-05 09:35] LABS: INTERNATIONAL NORMALIZED RATIO 1.8 RATIO; PROTHROMBIN TIME - PATIENT 20.8 SEC (9.8-11.6)
[2017-02-05 10:18] LABS: PLATELET ESTIMATE SMEAR LOW (NORMAL); PLATELET MORPHOLOGY NORMAL (NORMAL); SCAN/DIFF AUTO DIFF CONFIRMED
[2017-02-05 11:00] LABS: CHLORIDE 105 MEQ/L (98-107); POTASSIUM 3.2 MEQ/L (3.5-5.1); SODIUM (NA) 140 MEQ/L (136-145)
[2017-02-05 11:16] LABS: ALKALINE PHOSPHATASE 100 U/L (45-117); ALT (GPT) 76 U/L (10-53); ANION GAP 8 MEQ/L (5-15); AST (GOT) 104 U/L (15-37); BICARBONATE 26.6 MEQ/L (21.0-32.0); BLOOD UREA NITROGEN 4 MG/DL (7-18); GLOMERULAR FILTRATION RATE 119 ML/MIN (>89); TOTAL BILIRUBIN ADULT 6.7 MG/DL (0.2-1.0)
--- NOTE | 2017-02-05 12:32 | HHI.PR ---
Subjective Remarks Patient states she is feeling great, denies further melena, hemoglobin stable denies cp/sob Objective Vitals Vital Signs Date Time Temp Pulse Resp B/P Pulse Ox O2 Delivery O2 Flow Rate FiO2 02/05/17 04:01 62 02/05/17 04:01 98.9 62 32 127/89 92 02/05/17 03:01 60 31 136/91 92 02/05/17 03:01 60 02/05/17 00:00 62 25 133/82 94 02/05/17 00:00 62 02/04/17 23:00 60 18 119/72 94 02/04/17 23:00 60 02/04/17 22:00 99.4 64 23 123/79 96 02/04/17 22:00 64 02/04/17 22:00 99.4 64 23 123/79 96 02/04/17 21:00 68 26 142/91 94 02/04/17 21:00 68 02/04/17 20:58 96 21 02/04/17 20:00 99.0 65 32 128/81 97 02/04/17 20:00 99.0 75 20 128/81 98 02/04/17 20:00 65 02/04/17 20:00 97 Room Air 02/04/17 19:51 68 37 140/81 99 02/04/17 19:51 68 02/04/17 19:30 76 02/04/17 19:30 76 24 161/91 97 02/04/17 17:45 99.2 78 22 140/88 02/04/17 17:30 99.1 72 23 149/82 02/04/17 17:00 72 24 144/96 02/04/17 16:59 20 02/04/17 16:00 84 02/04/17 16:00 98.5 84 25 148/91 I/O 02/04/17 02/04/17 02/04/17 02/05/17 02/05/17 02/05/17 07:00 15:00 23:00 07:00 15:00 23:00 Intake Total 1150 ml 4651 ml 1422 ml Output Total 1000 ml 2350 ml 1000 ml 3200 ml Balance 150 ml -2350 ml 3651 ml -1778 ml Intake Oral 1400 ml 480 ml IV Total 1150 ml 2594 ml 942 ml FFP 657 ml Output Urine Total 1000 ml 2350 ml 1000 ml 3200 ml # Voids 6 6 # Bowel Movements 4 2 9 Result Diagram: 02/05/17 0900 02/05/17 1022 Imaging Last Impressions Chest X-Ray 02/01/17 0000 Signed Impressions: Service Date/Time: January 05:49 - CONCLUSION: No significant change. Bibasilar and left perihilar consolidation again noted. Vu Lozano MD Abdomen Ultrasound 01/31/17 0000 Signed Impressions: Service Date/Time: Tuesday, January 31, 2017 16:19 - CONCLUSION: 1. Diffusely abnormal liver likely related to cirrhosis. There is ascites. 2. Splenomegaly. This can be secondary to portal hypertension. Vu Le MD Objective Remarks GENERAL: this is an obese female, not in distress. No tremors. SKIN: Warm and dry. HEAD: Normocephalic. EYES: No scleral icterus. No injection or drainage. NECK: Supple, trachea midline. No JVD or lymphadenopathy. CARDIOVASCULAR: Regular rate and rhythm without murmurs, gallops, or rubs. RESPIRATORY: Breath sounds equal bilaterally. No accessory muscle use. GASTROINTESTINAL: Abdomen soft, non-tender, distended. Positive ascites MUSCULOSKELETAL: No cyanosis, or edema. BACK: Nontender without obvious deformity. No CVA tenderness. Procedures sp EGD with findings of esophageal varices and portal gastropathy sp banding Medications and IVs Current Medications Medications (Trade) Dose Ordered Sig/Jazmine Route Start Time Stop Time Status Last Admin Octreotide Acetate 500 mcg/ Sodium Chloride 500.5 ml @ 50 mls/hr Q10H IV 01/31/17 09:30 02/05/17 02:59 (Protonix Inj/NS Inj) 100 ml @ 10 mls/hr Q10H IV 01/31/17 09:30 02/04/17 23:49 (Restoril) 15 mg HS PRN PO 01/31/17 11:45 (Narcan Inj) 0.4 mg UNSCH PRN IV 01/31/17 11:45 (Romazicon Inj) 0.2 mg Q1M PRN IV PUSH 01/31/17 11:45 (Ativan) 1 mg Q4H PRN PO 01/31/17 11:45 (Ativan Inj) 1 mg Q4H PRN IV PUSH 01/31/17 11:45 02/03/17 20:09 (Ativan) 2 mg Q2H PRN PO 01/31/17 11:45 (Ativan Inj) 2 mg Q2H PRN IV PUSH 01/31/17 11:45 02/04/17 00:47 (Ativan Inj) 2 mg Q1H PRN IV PUSH 01/31/17 11:45 02/02/17 14:49 Lorazepam 2 mg 2 mg Q15M PRN IV PUSH 01/31/17 11:45 02/02/17 12:19 (Rocephin Inj/NS Inj) 100 ml @ 200 mls/hr Q24H IV 01/31/17 13:00 02/04/17 12:41 Chlorhexidine Gluconate 15 ml 15 ml BID@08,20 MT 01/31/17 20:00 02/02/17 20:00 (NS 1000 ml Inj) 1,000 ml @ 84 mls/hr [id number] IV 01/31/17 14:00 02/05/17 02:59 (NS Flush) 2 ml UNSCH PRN IV FLUSH 01/31/17 13:45 02/04/17 20:08 (NS Flush) 2 ml BID IV FLUSH 01/31/17 21:00 02/05/17 08:32 (Tears Naturale Opth Soln) 1 drop TID EACH EYE 01/31/17 18:00 02/03/17 20:08 (Zofran Inj) 4 mg Q6H PRN IV 01/31/17 13:45 02/01/17 20:25 Miscellaneous Information 1 Q361D XX 01/31/17 13:45 01/31/17 14:00 (Chlorhexidine 2% Cloth) 3 pack Taper DAILY@04 TOP 02/01/17 04:00 01/28/18 03:59 02/05/17 03:00 (Chlorhexidine 2% Cloth) 3 pack UNSCH PRN TOP 01/31/17 13:45 (Jolene-Colace) 1 tab BID PO 01/31/17 21:00 02/03/17 20:08 (Milk Of Magnesia Liq) 30 ml Q12H PRN PO 01/31/17 13:45 (Senokot) 17.2 mg Q12H PRN PO 01/31/17 13:45 (Dulcolax Supp) 10 mg DAILY PRN RECTAL 01/31/17 13:45 (Lactulose Liq) 30 ml DAILY PRN PO 01/31/17 13:45 Terbutaline Sulfate 1 mg 1 mg UNSCH PRN SQ 01/31/17 15:45 (Neosynephrine Inj/D5W 500 ml Inj) 500 ml @ 0 mls/hr TITRATE IV 01/31/17 16:00 (NS Flush) DAILY IVF 01/31/17 16:15 02/05/17 08:33 (NS Flush) UNSCH PRN IVF 01/31/17 16:15 (Orapred Odt) 40 mg DAILY PO 02/02/17 09:00 02/05/17 08:32 (Librium) 25 mg TID PO 02/02/17 09:00 02/05/17 08:32 Levothyroxine Sodium 150 mcg 150 mcg DAILY@0600 PO 02/03/17 06:00 02/05/17 05:13 Potassium Chloride 100 ml @ 50 mls/hr Q2H PRN IV 02/02/17 09:00 (KCl 20 Meq Premix Inj) 100 ml @ 50 mls/hr Q2H PRN IV 02/02/17 09:00 Potassium Bicarb/ Potassium Chloride 50 meq 50 meq UNSCH PRN PO 02/02/17 09:00 Potassium Chloride 100 ml @ 25 mls/hr UNSCH PRN IV 02/02/17 09:00 Potassium Chloride 100 ml @ 50 mls/hr Q2H PRN IV 02/02/17 09:00 (Magnesium Sulfate Inj/NS Inj) 100 ml @ 50 mls/hr UNSCH PRN IV 02/02/17 09:00 Magnesium Oxide 800 mg 800 mg UNSCH PRN PO 02/02/17 09:00 (Magnesium Sulfate Inj/NS Inj) 100 ml @ 50 mls/hr UNSCH PRN IV 02/02/17 09:00 Potassium Phosphate 2000 mg 2,000 mg Q4H PRN PO 02/02/17 09:00 (Sodium Phosphate Inj/NS 250 ml Inj) 250 ml @ 42 mls/hr UNSCH PRN IV 02/02/17 09:00 02/03/17 12:13 Potassium Phosphate 2000 mg 2,000 mg UNSCH PRN PO/TUBE 02/02/17 09:00 (Potassium Phosphate Inj/NS 250 ml Inj) 260 ml @ 42 mls/hr UNSCH PRN IV 02/02/17 09:00 02/02/17 17:30 (SoluMEDROL INJ) 40 mg DAILY IV PUSH 02/03/17 09:00 02/03/17 09:54 (Xifaxan) 550 mg BID PO 02/02/17 21:00 02/04/17 20:08 (Lactulose Liq) 30 ml Q12H PO 02/03/17 13:00 02/04/17 23:50 (Vitamin K Inj) 10 mg DAILY SQ 02/04/17 15:30 02/05/17 08:32 Urinary Catheter: No Vascular Central Line Catheter: Yes Assessment to: Remove Date of Insertion: Jan 31, 2017 Line: Central Venous Catheter Side: Left Location: Internal, Jugular A/P Problem List: (1) Upper GI bleed ICD Code: K92.2 Status: Acute (2) Hematemesis ICD Code: K92.0 Status: Acute (3) Coagulopathy ICD Code: D68.9 Status: Acute (4) Hypotension due to blood loss ICD Code: I95.89 Status: Acute (5) Hepatic encephalopathy ICD Code: K72.90 Status: Acute (6) Ascites ICD Code: R18.8 Status: Acute (7) Alcohol dependence ICD Code: F10.20 Status: Acute (8) Alcoholic liver disease ICD Code: K70.9 Status: Acute (9) Hypothyroidism ICD Code: E03.9 Status: Acute (10) Transaminitis ICD Code: R74.0 Status: Acute Assessment and Plan Neuro/Psych: Alcohol withdrawal Hepatic encephalopathy Anxiety Chronic benzodiazepine use Currently on Precedex drip -wean to DC Librium 25 mg 3 times a day ordered CIWA protocol initiated ? home dose Xanax 0.25 mg every 8 hours when necessary Vitamin bag daily 3 days including thiamine, folate and multivitamin be continued Monitor for DTs EtOH level 132 on admission, today 75. 6/25 off Precedex drip, has not required IV Ativan since 02/03. Had long conversation regarding alcohol abuse and cessation. CV: History of hypertension LA Currently on normal saline at 84 cc an hour Not requiring vasopressors and/or antihypertensives Serial lactate until cleared. 0.9 02/04 blood pressure stable. Resp: Acute respiratory failure, now extubated 02/01 Nasal cannula to maintain saturations greater than or equal to 92%. Currently in 2L Incentive spirometry while awake As needed albuterol therapy for dyspnea At risk for aspiration GI: Upper GI bleed Status post EGD with esophageal varices 3/portal gastropathy Ascites Alcoholic liver disease Elevated bilirubin Gastroesophageal reflux disease Hepatosplenomegaly Status post EGD 01/[address] Murillo revealed esophageal varices with banding 3/ portal gastropathy Continue on Protonix drip at 8 mg an hour and octreotide drip at 50 mg an hour for gastroenterology. Serial hemoglobins remains stable. Paracentesis performed 02/03/17 with 2.75 L of bile tinged ascites fluid removed , fluid studies ordered to rule out SBP Abdominal ultrasound 01.31 revealed hepatosplenomegaly, diffusely enlarged liver likely secondary to alcohol cirrhosis and abdominal ascites Hepatitis panel ordered Meld score is 19. Shivani alcoholic hepatitis score is 7. [facility] discriminant function for alcohol hepatitis is 49 today. Scores of 32 and above can reveal poor prognosis and they be helped by steroids. Received 125 mg Solu-Medrol yesterday and currently at prednisone 40 mg by mouth daily. 02/04 patient still having lower GI bleed with bloody stools. Monitor CBC which has been slowly trending down and 11 is 9.1 today. Will continue to monitor H& H every 6 hours and transfuse as needed for hemoglobin less than 8 if active bleeding protocol hemoglobin of more than 9. Continue Rocephin for prophylaxis. 02/05 Hemoglobin stable at 10, no further melanotic stools. Will start the patient on oral Lasix 40 mg po daily and Spironolactone 100 mg po daily. : Flores catheter will be placed for accurate I's and O's in a critically ill patient Endo: Hypothyroidism Hyperglycemia of critical illness/stress Continue Levoxyl home doses 150 mcg daily according to old records/from 2014 admission. Medicine reconciliation still not completed after 48 hours inpatient TSH - 1.65 Sliding scale insulin if indicated to maintain euglycemia Renal: Monitor urine output Accurate I's and O's Follow BMP in a.m. Heme: Coagulopathy - secondary to liver disease Thrombocytopenia Acute posthem anemia Status post blood platelets and cryoprecipitate Transfuse as clinically indicated 02/04 INR is elevated at 1.8. Will transfuse 2 units of fresh frozen plasma given that the patient has bloody stools, will also administer vitamin K. 02/05 INR elevated at 1.8. Sp transfusion of 2 units of fresh frozen plasma, melena has subsided. Will give ID: Currently on Rocephin 1 g IV every 24 hours in setting of upper GI bleed day #5 FEN: Hypocalcemia Hypophosphatemia Hypokalemia 2 g calcium gluconate IV 1 now ICU electrolyte protocol initiated Replace electrolytes as clinically indicated 02/04 potassium 3.1 today. Will replete IV and continue to monitor BMP. 02/05 K still ow at 3.2. Replace orally and continue to monitor BMP. MSK: 02/04 Appreciate PT recommendations. Discussed case with physical therapist and decided most likely the patient will need short-term home with home health physical therapy. Access -Left IJ CVL day #4 placed 01/31. 02/05 DC Left IJ Prophylaxis - GI - Protonix/octreotide drips - DVT - SCD/pharmacological prophylaxis contraindicated with active hemorrhage Discharge Planning Possible Dc in am. Problem Qualifiers (1) Hematemesis: Qualified Code: K92.0 - Hematemesis with nausea Rob Curtis MD Feb 05, 2017 12:32
[2017-02-05] MEDS ORDERED: POTASSIUM CHLORIDE 10 MEQ CONTROLLED RELEASE TAB PO ONE (13:00)
[2017-02-05] MEDS: LACTULOSE SYRUP 20 GM/30 ML CUP PO SCH (13:00)
[2017-02-05] MEDS: cefTRIAXone INJ 1,000 MG in SODIUM CHLORIDE 0.9% INJ 100 ML IV SCH (13:04)
[2017-02-05] MEDS: FUROSEMIDE 40 MG TAB PO SCH (13:07)
[2017-02-05] MEDS: PHYTONADIONE 5 MG TAB PO SCH (14:00)
[2017-02-05] MEDS: SPIRONOLACTONE 100 MG TAB PO SCH (14:43)
[2017-02-05 17:51] LABS: HEMATOCRIT 32.8 % (35.0-46.0); MEAN CELL VOLUME 91.6 FL (80.0-100.0); MEAN CORPUSCULAR HGB CONC 32.8 % (32.0-36.0); PLATELET COUNT 93 TH/MM3 (150-450); RED BLOOD COUNT 3.58 MIL/MM3 (4.00-5.30); RED CELL DISTRIBUTION WIDTH 20.2 % (11.6-17.2); WHITE BLOOD COUNT 5.5 TH/MM3 (4.0-11.0)
[2017-02-05 18:01] LABS: REVIEW FLAG FINAL
--- NOTE | 2017-02-05 18:26 | HHI.GIFU ---
Subjective Remarks feels better, fully awake, stated that wants to eat regular diet Objective Vitals I&O Vital Signs Date Time Temp Pulse Resp B/P Pulse Ox O2 Delivery O2 Flow Rate FiO2 02/05/17 16:00 62 02/05/17 16:00 84 24 132/93 02/05/17 15:00 76 20 133/95 02/05/17 14:41 76 18 137/96 02/05/17 13:11 86 29 140/99 02/05/17 13:00 78 24 154/102 02/05/17 12:07 98.5 86 27 135/98 02/05/17 12:00 62 02/05/17 11:00 90 35 144/97 02/05/17 10:00 130/94 99 02/05/17 09:51 150/98 98 02/05/17 09:00 96 19 125/94 97 02/05/17 08:00 84 02/05/17 08:00 98.4 86 28 139/99 95 02/05/17 07:09 82 25 132/94 95 02/05/17 07:02 141/106 02/05/17 07:00 98 Room Air 02/05/17 04:01 62 02/05/17 04:01 98.9 62 32 127/89 92 02/05/17 03:01 60 31 136/91 92 02/05/17 03:01 60 02/05/17 00:00 62 25 133/82 94 02/05/17 00:00 62 02/04/17 23:00 60 18 119/72 94 02/04/17 23:00 60 02/04/17 22:00 99.4 64 23 123/79 96 02/04/17 22:00 64 02/04/17 22:00 99.4 64 23 123/79 96 02/04/17 21:00 68 26 142/91 94 02/04/17 21:00 68 02/04/17 20:58 96 21 02/04/17 20:00 99.0 65 32 128/81 97 02/04/17 20:00 99.0 75 20 128/81 98 02/04/17 20:00 65 02/04/17 20:00 97 Room Air 02/04/17 19:51 68 37 140/81 99 02/04/17 19:51 68 02/04/17 19:30 76 02/04/17 19:30 76 24 161/91 97 I/O 02/04/17 02/04/17 02/04/17 02/05/17 02/05/17 02/05/17 07:00 15:00 23:00 07:00 15:00 23:00 Intake Total 1150 ml 4651 ml 1422 ml 1722 ml Output Total 1000 ml 2350 ml 1000 ml 3200 ml 800 ml Balance 150 ml -2350 ml 3651 ml -1778 ml 922 ml Intake Oral 1400 ml 480 ml 860 ml IV Total 1150 ml 2594 ml 942 ml 862 ml FFP 657 ml Output Urine Total 1000 ml 2350 ml 1000 ml 3200 ml 800 ml # Voids 6 6 4 # Bowel Movements 4 2 9 Laboratory Laboratory Tests Test 02/04/17 02/05/17 02/05/17 02/05/17 21:45 03:15 09:00 10:22 Hemoglobin 9.2 9.1 10.2 Hematocrit 27.5 27.6 31.4 White Blood Count 6.7 Red Blood Count 3.37 Mean Corpuscular Volume 93.3 Mean Corpuscular Hemoglobin 30.2 Mean Corpuscular Hemoglobin 32.4 Concent Red Cell Distribution Width 21.8 Platelet Count 86 Mean Platelet Volume 8.9 Neutrophils (%) (Auto) 61.1 Lymphocytes (%) (Auto) 20.6 Monocytes (%) (Auto) 14.8 Eosinophils (%) (Auto) 1.6 Basophils (%) (Auto) 1.9 Neutrophils # (Auto) 4.1 Lymphocytes # (Auto) 1.4 Monocytes # (Auto) 1.0 Eosinophils # (Auto) 0.1 Basophils # (Auto) 0.1 CBC Comment AUTO DIFF Differential Comment AUTO DIFF CONFIRMED Platelet Estimate LOW Platelet Morphology Comment NORMAL Basophilic Stippling Prothrombin Time 20.8 Prothromb Time International 1.8 Ratio Sodium Level 140 Potassium Level 3.2 Chloride Level 105 Carbon Dioxide Level 26.6 Anion Gap 8 Blood Urea Nitrogen 4 Creatinine 0.57 Estimat Glomerular Filtration 119 Rate Random Glucose 116 Calcium Level 8.7 Phosphorus Level 0.7 Magnesium Level 2.0 Total Bilirubin 6.7 Aspartate Amino Transf 104 (AST/SGOT) Alanine Aminotransferase 76 (ALT/SGPT) Alkaline Phosphatase 100 Total Protein 7.1 Albumin 3.6 Test 02/05/17 17:42 White Blood Count 5.5 Red Blood Count 3.58 Hemoglobin 10.7 Hematocrit 32.8 Mean Corpuscular Volume 91.6 Mean Corpuscular Hemoglobin 30.0 Mean Corpuscular Hemoglobin 32.8 Concent Red Cell Distribution Width 20.2 Platelet Count 93 Mean Platelet Volume 9.3 Date/Time Procedure Status Source Growth 02/04/17 10:20 Stool Occult Blood ([place]) - Final Complete Stool Stool HEMOCCULT POSITIVE 02/03/17 11:30 Gram Stain - Final Resulted Fluid Peritoneal Fluid 02/03/17 11:30 Body Fluid Culture - Preliminary Resulted Fluid Peritoneal Fluid NO GROWTH IN 48 HOURS. Physical Exam HEENT: PERRLA; normocephalic; atraumatic; positive jaundice. NECK: Neck is supple, no JVD, no lymphadenopathy. CHEST: CTA CARDIAC: RRR. ABDOMEN: Soft, distended with ascites, nontender; no hepatosplenomegaly; bowel sounds x 4 quadrants EXTREMITIES: No clubbing, cyanosis, or edema. SKIN: Normal; no rash; jaundice. HANDY MAN: Awake and alert. Assessment and Plan Plan ASSESSMENT: ETOH liver Dx, with cirrhosis, S/P EGD with banding (01/31) by Dr. Murillo-- Esophageal varices with banding x 3, portal gastropathy. Paracentesis (02/03), 2.75 L of bile tinged ascites fluid removed, peritoneal fluid studies pending. Hepatitis panel negative. Abdomen Ultrasound 01/31/17--1. Diffusely abnormal liver likely related to cirrhosis. There is ascites. 2. Splenomegaly. This can be secondary to portal hypertension. Dark loose stool. Hemoccult ordered, pending. HH 06/11.2 02-05-17 doing well, fuly alert, ETOH hepatitis wants to start rehab and eating PLAN: -OK to DC Protonix/Octreotide drip, switch to oral PPI - Monitor HH, transfuse as necessary - Paracentesis as needed - Avoid ETOH - Continue diuretic - may need banding in 6 wks, alsowill need to be on B zahida once BP stable Linnea Cruz MD Feb 05, 2017 18:26
[2017-02-05] MEDS: predniSONE 20 MG TAB PO SCH (21:39)
[2017-02-06] VITALS: BP 137/92; PULSE 85; PULSE 88; RESP 18; TEMP 98.6; O2SAT 99
[2017-02-06] MEDS: LACTULOSE SYRUP 20 GM/30 ML CUP PO SCH (01:00)
[2017-02-06] MEDS: SODIUM CHLOR 0.9% 1000 ML INJ 1,000 ML IV SCH (01:01)
[2017-02-06] MEDS: CHLORHEXIDINE GLUCONATE 2 % 1 PACK (2 CLOTHS) TOP SCH (01:01)
[2017-02-06 04:00] VITALS: BP 142/90; PULSE 69; PULSE 91; RESP 20; TEMP 98.2; O2SAT 98
[2017-02-06] MEDS: PANTOPRAZOLE INJ 80 MG in SODIUM CHLORIDE 0.9% INJ 100 ML IV SCH (05:30)
[2017-02-06] MEDS: OCTREOTIDE INJ 500 MCG in SODIUM CHLORID 0.9% 500 ML INJ 500 ML IV SCH (05:30)
[2017-02-06] MEDS: LEVOTHYROXINE SODIUM 150 MCG TAB PO SCH (06:57)
[2017-02-06 08:00] VITALS: BP 133/94; PULSE 78; RESP 18; TEMP 98.4; O2SAT 98
[2017-02-06] MEDS: CHLORHEXIDINE 0.12% (ORAL KIT) 15 ML CUP MT SCH (08:00)
[2017-02-06] MEDS: SODIUM CHLORIDE 0.9% FLUSH 10 ML FLUSH IVF SCH (09:00)
[2017-02-06] MEDS: PHYTONADIONE 10 MG/ML VIAL SQ SCH (09:00)
[2017-02-06] MEDS: SODIUM CHLORIDE 0.9% FLUSH 10 ML FLUSH IV FLUSH SCH (09:00)
[2017-02-06] MEDS: ARTIFICIAL TEARS OPTH SOLN 15 ML BTL EACH EYE SCH (09:00)
[2017-02-06] MEDS: DOCUSATE SODIUM 50 MG/SENNA 8.6 MG TAB PO SCH (09:00)
[2017-02-06] MEDS: prednisoLONE 10 MG ODT TAB PO SCH (09:00)
[2017-02-06 09:22] LABS: MEAN CELL VOLUME 93.7 FL (80.0-100.0); MEAN CORPUSCULAR HEMOGLOBIN 31.1 PG (27.0-34.0); MEAN CORPUSCULAR HGB CONC 33.1 % (32.0-36.0); PLATELET COUNT 106 TH/MM3 (150-450); RED BLOOD COUNT 4.05 MIL/MM3 (4.00-5.30); RED CELL DISTRIBUTION WIDTH 20.1 % (11.6-17.2); WHITE BLOOD COUNT 7.4 TH/MM3 (4.0-11.0)
[2017-02-06 09:40] LABS: INTERNATIONAL NORMALIZED RATIO 1.7 RATIO; PROTHROMBIN TIME - PATIENT 19.4 SEC (9.8-11.6)
[2017-02-06] MEDS: chlordiazePOXIDE 25 MG CAP PO SCH (09:43)
[2017-02-06] MEDS: RIFAXIMIN 550 MG TAB PO SCH (09:43)
[2017-02-06] MEDS: PHYTONADIONE 5 MG TAB PO SCH (09:43)
[2017-02-06] MEDS: FUROSEMIDE 40 MG TAB PO SCH (09:44)
[2017-02-06] MEDS: SPIRONOLACTONE 100 MG TAB PO SCH (09:44)
[2017-02-06] MEDS: predniSONE 20 MG TAB PO SCH (09:44)
[2017-02-06] MEDS ORDERED: POTASSIUM CHLORIDE 10 MEQ CONTROLLED RELEASE TAB PO ONE (09:45)
[2017-02-06] MEDS ORDERED: FURO40TA PO (12:12)
[2017-02-06] MEDS ORDERED: Lactulose Liq PO (12:12)
[2017-02-06] MEDS ORDERED: PHYT5TAB2 PO (12:18)
[2017-02-06] MEDS ORDERED: ALDA100T PO (12:18)
[2017-02-06] MEDS ORDERED: XIFA550T4 PO (12:18)
[2017-02-06] MEDS ORDERED: REST15CA PO (12:18)
[2017-02-06] MEDS ORDERED: ACAM1TAB5 PO (12:20)
[2017-02-06] MEDS ORDERED: PROP10TA6 PO (12:22)
--- NOTE | 2017-02-06 12:23 | HHI.DCPOC ---
Discharge Care Plan Diagnosis: (1) Hematemesis (2) Coagulopathy (3) Hypothyroidism (4) Upper GI bleed (5) Transaminitis (6) Hypotension due to blood loss (7) Hepatic encephalopathy (8) Alcohol dependence (9) Ascites (10) Alcoholic liver disease (11) Alcohol abuse (12) Liver cirrhosis, alcoholic Goals to Promote Your Health * To prevent worsening of your condition and complications * To maintain your health at the optimal level Directions to Meet Your Goals Take your medications as prescribed Follow your dietary instruction Follow activity as directed Keep your appointments as scheduled Take your immunizations and boosters as scheduled If your symptoms worsen call your PCP, if no PCP go to Urgent Care Center or Emergency Room Smoking is Dangerous to Your Health. Avoid second hand smoke Call the 24-hour hour crisis hotline for domestic abuse at Rob Curtis MD Feb 06, 2017 12:23
--- NOTE | 2017-02-06 12:28 | HHI.DS ---
Discharge Summary Admission Date Jan 31, 2017 at 11:33 Discharge Date: Feb 06, 2017 Admitting Diagnosis upper GI bleed rule out esophageal varices, orthostatic hypotension (1) Upper GI bleed ICD Code: K92.2 Diagnosis: Principal (2) Hematemesis ICD Code: K92.0 Diagnosis: Principal (3) Coagulopathy ICD Code: D68.9 Diagnosis: Principal (4) Hypotension due to blood loss ICD Code: I95.89 Diagnosis: Principal (5) Hepatic encephalopathy ICD Code: K72.90 Diagnosis: Principal (6) Ascites ICD Code: R18.8 Diagnosis: Principal (7) Alcohol dependence ICD Code: F10.20 Diagnosis: Secondary (8) Alcoholic liver disease ICD Code: K70.9 Diagnosis: Secondary (9) Hypothyroidism ICD Code: E03.9 Diagnosis: Secondary (10) Transaminitis ICD Code: R74.0 Diagnosis: Secondary Procedures sp EGD with findings of esophageal varices and portal gastropathy sp banding Brief History - From Admission 36 year-old female with a history of hypothyroidism, alcohol abuse resented to the ED for evaluation of an acute onset of vomiting bright red blood 6 times total since 4:30 AM this morning along with 2 day history of back black stool associated with abdominal pain rated 7/10 in intensity. Patient was recently sober until 3 weeks ago when she started drinking, mostly 1 pint of vodka per day. She denies any prior history of endoscopy and is not currently on any blood thinner. Abnormal labs include EtOH 115, PT 21.9 and H& H 11.8/33.7. She endorsed mild shortness of breath or denies any chest pain at this point. She has no other issues. CBC/BMP: 02/06/17 0905 02/05/17 1022 Significant Findings Laboratory Tests Test 02/04/17 02/04/17 02/04/17 02/05/17 06:00 15:40 21:45 03:15 Red Blood Count 2.95 MIL/MM3 3.29 MIL/MM3 (4.00-5.30) (4.00-5.30) Hemoglobin 9.1 GM/DL 10.0 GM/DL 9.2 GM/DL 9.1 GM/DL (11.6-15.3) (11.6-15.3) (11.6-15.3) (11.6-15.3) Hematocrit 26.9 % 30.2 % 27.5 % 27.6 % (35.0-46.0) (35.0-46.0) (35.0-46.0) (35.0-46.0) Red Cell Distribution Width 20.4 % 20.8 % (11.6-17.2) (11.6-17.2) Platelet Count 78 TH/MM3 93 TH/MM3 (150-450) (150-450) Monocytes (%) (Auto) 12.4 % (0.0-8.0) Lymphocytes # (Auto) 0.9 TH/MM3 (1.0-4.8) Prothrombin Time 20.3 SEC (9.8-11.6) Potassium Level 3.1 MEQ/L (3.5-5.1) Chloride Level 108 MEQ/L (98-107) Blood Urea Nitrogen 6 MG/DL (7-18) Creatinine 0.41 MG/DL (0.50-1.00) Random Glucose 107 MG/DL (74-106) Calcium Level 8.0 MG/DL (8.5-10.1) Total Bilirubin 6.6 MG/DL (0.2-1.0) Aspartate Amino Transf 127 U/L (15-37) (AST/SGOT) Alanine Aminotransferase 72 U/L (10-53) (ALT/SGPT) Total Protein 6.2 GM/DL (6.4-8.2) Albumin 3.0 GM/DL (3.4-5.0) Test 02/05/17 02/05/17 02/05/17 02/06/17 09:00 10:22 17:42 09:05 Red Blood Count 3.37 MIL/MM3 3.58 MIL/MM3 (4.00-5.30) (4.00-5.30) Hemoglobin 10.2 GM/DL 10.7 GM/DL (11.6-15.3) (11.6-15.3) Hematocrit 31.4 % 32.8 % (35.0-46.0) (35.0-46.0) Red Cell Distribution Width 21.8 % 20.2 % 20.1 % (11.6-17.2) (11.6-17.2) (11.6-17.2) Platelet Count 86 TH/MM3 93 TH/MM3 106 TH/MM3 (150-450) (150-450) (150-450) Monocytes (%) (Auto) 14.8 % (0.0-8.0) Monocytes # (Auto) 1.0 TH/MM3 (0-0.9) Platelet Estimate LOW (NORMAL) Prothrombin Time 20.8 SEC 19.4 SEC (9.8-11.6) (9.8-11.6) Potassium Level 3.2 MEQ/L (3.5-5.1) Blood Urea Nitrogen 4 MG/DL (7-18) Random Glucose 116 MG/DL (74-106) Phosphorus Level 0.7 MG/DL (2.5-4.9) Total Bilirubin 6.7 MG/DL (0.2-1.0) Aspartate Amino Transf 104 U/L (15-37) (AST/SGOT) Alanine Aminotransferase 76 U/L (10-53) (ALT/SGPT) PE at Discharge GENERAL: this is an obese female, not in distress. No tremors. SKIN: Warm and dry. HEAD: Normocephalic. EYES: No scleral icterus. No injection or drainage. NECK: Supple, trachea midline. No JVD or lymphadenopathy. CARDIOVASCULAR: Regular rate and rhythm without murmurs, gallops, or rubs. RESPIRATORY: Breath sounds equal bilaterally. No accessory muscle use. GASTROINTESTINAL: Abdomen soft, non-tender, distended. Positive ascites MUSCULOSKELETAL: No cyanosis, or edema. BACK: Nontender without obvious deformity. No CVA tenderness. Transfer Summary This is a 36-year-old female. Date of admission 01/31/2017. Date of consultation 01/31/2017. Past medical history includes hypothyroidism, anxiety, gastroesophageal reflux disease, hypertension, anemia. She also has a history of EtOH use/abuse. According to records obtained as she is currently intubated and unable to provide on her own she has been drinking approximately 1 L of vodka daily for the past 3 days. She presented to [facility] with acute onset of hematemesis and subacute black tarry stools 2 days. INR was elevated at 1.9. PTT within normal lives. Hemoglobin around 12. Alcohol level 115. Beta Hcg pending. She was started on a Protonix drip 8 mg/hr after receiving a 80 mg bolus and octreotide drip 2 50 mcg/hr. Patient was originally admitted under the hospitalist service. GI was consulted and an EGD was performed which revealed esophageal varices which were banded 3 and portal gastropathy. 700 cc crystalloid. 545 cc FFP. Estimate blood loss 200 cc. We are asked to keep the patient intubated by the GI service overnight with serial hemoglobins to be performed. 02/01: Tmax 99.1. 4 bowel movement overnight. Transfused 2 units PRBC and 2 FFP since admission. Positive for liters. Bilirubin is increased 8.5. Currently down to Precedex at 0.4 mics grams per kilogram per hour 02/02: Extubated late last night. Quite agitated requiring multiple doses of Ativan. Precedex drip will be initiated. Remains nothing by mouth. 02/03: Remains critically ill on Precedex for alcohol withdrawal. Abdomen remains quite distended, bedside ultrasound shows large amount of ascites. No further GI bleed reported. Hypocalcemia on labs. Ammonia level 75 today On follow up, patient's mental status has significantly improved. Now alert awake not agitated. Patient had paracentesis done at about 11.30 AM today, and 2.7 L fluid removed. Will consult hospitalist to assume care in am Pt Condition on Discharge: Stable Discharge Disposition: Discharge Home Discharge Instructions DIET: Follow Instructions for: Low Sodium Diet Activities you can perform: Regular-No Restrictions Activities to Avoid: Prolonged Standing, Strenuous Activity Rob Curtis MD Feb 06, 2017 12:28
[2017-02-06] MEDS ORDERED: PROPRANOLOL HCL 10 MG TAB PO SCH (14:00)
[2017-02-06 16:28] LABS: BODY FLUID LDH 74 U/L (()); BODY FLUID LDH SOURCE PERITONEAL (())
== END 2017-02-06 13:19 | disposition home or self-care (01) | DRG 423 ==
LOC: PHED 08:55 → PHEDA 11:33 → PHICU 13:30
PROVIDERS: ADMIT Hospitalist; ATTEND Hospitalist
PROC: 30233K1 Transfusion of Nonautologous Frozen Plasma into Peripheral Vein, Percutaneous Approach (ICD-10-PCS; 2017-01-31)
PROC: 30233N1 Transfusion of Nonautologous Red Blood Cells into Peripheral Vein, Percutaneous Approach (ICD-10-PCS; 2017-01-31)
PROC: 5A1945Z Respiratory Ventilation, 24-96 Consecutive Hours (ICD-10-PCS; 2017-01-31)
PROC: 02HV33Z Insertion of Infusion Device into Superior Vena Cava, Percutaneous Approach (ICD-10-PCS; 2017-01-31)
PROC: B544ZZA Ultrasonography of Left Jugular Veins, Guidance (ICD-10-PCS; 2017-01-31)
PROC: 0BH17EZ Insertion of Endotracheal Airway into Trachea, Via Natural or Artificial Opening (ICD-10-PCS; 2017-01-31)
PROC: 3E0G8TZ Introduction of Destructive Agent into Upper GI, Via Natural or Artificial Opening Endoscopic (ICD-10-PCS; 2017-01-31)
PROC: 0D968ZZ Drainage of Stomach, Via Natural or Artificial Opening Endoscopic (ICD-10-PCS; principal; 2017-01-31 12:45)
PROC: 30233M1 Transfusion of Nonautologous Plasma Cryoprecipitate into Peripheral Vein, Percutaneous Approach (ICD-10-PCS; 2017-02-01)
PROC: 0W9G3ZZ Drainage of Peritoneal Cavity, Percutaneous Approach (ICD-10-PCS; 2017-02-03)
DX: K70.31 Alcoholic cirrhosis of liver with ascites (principal); J96.00 Acute respiratory failure, unspecified whether with hypoxia or hypercapnia; I85.11 Secondary esophageal varices with bleeding; D68.9 Coagulation defect, unspecified; D69.59 Other secondary thrombocytopenia; K76.6 Portal hypertension; I95.9 Hypotension, unspecified; D62 Acute posthemorrhagic anemia; F10.239 Alcohol dependence with withdrawal, unspecified; K72.90 Hepatic failure, unspecified without coma; K21.9 Gastro-esophageal reflux disease without esophagitis; I10 Essential (primary) hypertension; E03.9 Hypothyroidism, unspecified; K31.89 Other diseases of stomach and duodenum; R73.9 Hyperglycemia, unspecified; K70.11 Alcoholic hepatitis with ascites; R16.2 Hepatomegaly with splenomegaly, not elsewhere classified; E83.51 Hypocalcemia; E83.39 Other disorders of phosphorus metabolism; E87.6 Hypokalemia; F10.229 Alcohol dependence with intoxication, unspecified; F41.9 Anxiety disorder, unspecified; Y90.5 Blood alcohol level of 100-119 mg/100 ml; Z81.1 Family history of alcohol abuse and dependence; Z80.0 Family history of malignant neoplasm of digestive organs
CPT/HCPCS: 36430; 36556; 36600; 71010; 76700; 76937; 80053; 80074; 80307; 81001; 82042; 82140; 82150; 82272; 82550; 82805; 82945; 82948; 83605; 83615; 83690; 83735; 84100; 84155; 84157; 84443; 84702; 85014; 85018; 85025; 85027; 85384; 85610; 85730; 86850; 86900; 86901; 86920; 86927; 86965; 87070; 87205; 87493; 87641; 89051; 93005; 94002; 94003; 94640; 94664; 96365; 96368; 96375; C9113; J0610; J0696; J2060; J2354; J2405; J2920; J2930; J3010; J3411; J3430; J3475; J3486; J7030; J7040; J7050; J7510; J7512; P9016; P9017; P9047